=== PATIENT | male | born 1940 | race Caucasian/White ===

== ENCOUNTER 2016-07-29 09:46 | Inpatient (IN) | payer MEDICARE ==
[2016-07-29] MEDS ORDERED: NORMAL SALINE 1000 ML 1,000 ML IV ONE ×3 (10:54→13:42)
[2016-07-29] MEDS ORDERED: MAGNESIUM SULFATE/D5W 100 ML IV ONE (10:55)
[2016-07-29 11:06] LABS: HEMATOCRIT 39.9 % (37.9-51.0); HEMOGLOBIN 13.8 g/dL (13.5-17.0); HGB HCT DIFFERENCE 1.5; MEAN CORPUSCULAR HEMOGLOBIN 30.6 pg (27.0-33.4); MEAN CORPUSCULAR HGB CONC 34.5 g/dL (32.0-36.0); MEAN CORPUSCULAR VOLUME 89 fl (80-97); RED CELL DISTRIBUTION WIDTH 14.2 % (11.5-14.0); WHITE BLOOD COUNT 11.7 10^3/uL (4.0-10.5)
[2016-07-29 11:21] LABS: ALANINE AMINOTRANSFERASE 93 U/L (21-72); ALBUMIN 3.3 g/dL (3.5-5.0); ALKALINE PHOSPHATASE 314 U/L (38-126); ANION GAP 15 (5-19); ASPARTATE AMINO TRANSFERASE 173 U/L (17-59); BILIRUBIN,TOTAL 1.9 mg/dL (0.2-1.3); BLOOD UREA NITROGEN 32 mg/dL (7-20); CALCIUM 10.5 mg/dL (8.4-10.2); CARBON DIOXIDE 19 mmol/L (22-30); CHLORIDE 105 mmol/L (98-107); CREATINE KINASE 149 U/L (55-170); CREATININE RESULT 1.02 mg/dL (0.52-1.25); GLUCOSE 71 mg/dL (75-110); LIPASE 97.9 U/L (23-300); MAGNESIUM 1.8 mg/dL (1.6-2.3); PHOSPHORUS 4.5 mg/dL (2.5-4.5); POTASSIUM 4.6 mmol/L (3.6-5.0); SODIUM 138.8 mmol/L (137-145); TOTAL PROTEIN 6.8 g/dL (6.3-8.2)
[2016-07-29 11:21] LABS: VENOUS BLOOD BASE EXCESS -5.4 mmol/L; VENOUS BLOOD HCO3 17.4 mmol/L (20-32); VENOUS BLOOD PCO2 26.8 mmHg (35-63); VENOUS BLOOD PH 7.43 (7.30-7.42)
[2016-07-29] MEDS ORDERED: LEVOFLOXACIN 500 MG/D5W RTU 100 ML IV ONE (11:34)
[2016-07-29] MEDS ORDERED: CEFEPIME 1 GM/D5W RTU 50 ML IV ONE (11:34)
[2016-07-29 11:36] LABS: BAND NEUTROPHILS % (MANUAL) 1 % (3-5); BASOPHILS % (MANUAL) 0 % (0-2); EOSINOPHILS % (MANUAL) 4 % (0-6); LYMPHOCYTES % (MANUAL) 5 % (13-45); TOTAL CELLS COUNTED 100
[2016-07-29 11:38] LABS: CREATINE KINASE MB 1.46 ng/mL (<4.55)
[2016-07-29 11:41] LABS: ANISOCYTOSIS SLIGHT; TOXIC GRANULATION SLIGHT; TOXIC VACUOLATION PRESENT
[2016-07-29 11:51] LABS: TROPONIN I < 0.012 ng/mL
--- NOTE | 2016-07-29 15:32 | ER Document Report ---
ED General - General Chief Complaint: Other Stated Complaint: WEAKNESS TRAVEL OUTSIDE OF THE [place] IN LAST 30 DAYS: No - HPI Patient complains to provider of: generalized weakness short of breath Notes: Patient presents from home for generalized weakness shortness of breath. According to family members patient has been feeling sick for a few days with some intermittent confusion states patient has a history of lung cancer with removal of the long proximal to 6 years ago has been cancer free since that time the current radiation and chemotherapy. Possible intermittent fevers at home productive cough with nausea. Decreased appetite. Patient was seen by PCP approximately 2 weeks prior to ER visit diagnosed with sinusitis and started on an antibiotic. Upon my evaluation patient is tachycardic oxygenation is about 92. Patient is awake difficult to understand. Patient is moving all 4 extremities patient looks to be uncomfortable - Related Data Allergies/Adverse Reactions: No Known Allergies Allergy (Unverified 09/03/10 10:25) Home Medications: Current Home Medications Albuterol Sulfate [Proair HFA Inhalation Aerosol 8.5 gm MDI] 2 puff IH QID 07/29 [History] Cetirizine HCl [Zyrtec 10 mg Tablet] 10 mg PO DAILY 07/29/16 [History] Esomeprazole Magnesium [Nexium] 40 mg PO BID 07/29/16 [History] Levothyroxine Sodium [Synthroid 0.075 mg Tablet] 0.075 mg PO DAILY 07/29/16 [ History] Lorazepam [Ativan 1 mg Tablet] 1 mg PO BIDP PRN 07/29/16 [History] Pravastatin Sodium [Pravachol] 40 mg PO DAILY 07/29/16 [History] Prochlorperazine Maleate [Compazine 5 mg Tablet] 5 mg PO TIDP PRN 07/29/16 [ History] Tiotropium [place] [Spiriva Handihaler 5 Cap/Kit (18 Mcg/Cap)] 1 puff IH DAILY 07/29/16 [History] Past Medical History - Social History Smoking Status: Unknown if Ever Smoked Family History: Reviewed & Not Pertinent - Past Medical History Cardiac Medical History: Reports: Hx Hypercholesterolemia, Hx Hypertension Denies: Hx Heart Attack Pulmonary Medical History: Reports: Hx Bronchitis, Hx COPD Denies: Hx Asthma Neurological Medical History: Denies: Hx Cerebrovascular Accident, Hx Seizures GI Medical History: Reports: Hx Gastroesophageal Reflux Disease. Denies: Hx Hepatitis, Hx Hiatal Hernia, Hx Ulcer Psychiatric Medical History: Reports: Hx Depression - anxiety Infectious Medical History: Denies: Hx Hepatitis Past Surgical History: Denies: Hx Open Heart Surgery, Hx Pacemaker Review of Systems - Review of Systems Constitutional: Fever, Weakness EENT: No symptoms reported Cardiovascular: No symptoms reported Respiratory: Cough, Short of breath Gastrointestinal: No symptoms reported Genitourinary: No symptoms reported Male Genitourinary: No symptoms reported Musculoskeletal: No symptoms reported Skin: No symptoms reported Hematologic/Lymphatic: No symptoms reported Neurological/Psychological: No symptoms reported -: Yes All other systems reviewed and negative Physical Exam - Vital signs Vitals: Temp Pulse Resp BP Pulse Ox 98.6 F 118 H 22 H 124/90 H 94 07/29/16 09:58 07/29/16 09:58 07/29/16 09:58 07/29/16 09:58 07/29/16 09:58 Interpretation: Tachycardic, Tachypneic - General General appearance: Alert. No: Appears well - Looks uncomfortable - HEENT Head: Normocephalic, Atraumatic Eyes: Normal Pupils: PERRL - Respiratory Respiratory status: No respiratory distress Chest status: Nontender Breath sounds: Rhonchi - Right-sided, Wheezing Chest palpation: Normal - Cardiovascular Rhythm: Tachycardia Heart sounds: Normal auscultation Murmur: No - Abdominal Inspection: Normal Distension: No distension Bowel sounds: Normal Tenderness: Nontender. No: Tender, McBurney's point, Escobar's sign, Guarding, Rebound Organomegaly: No organomegaly - Back Back: Normal, Nontender - Extremities General upper extremity: Normal inspection, Nontender, Normal color, Normal ROM , Normal temperature General lower extremity: Normal inspection, Nontender, Normal color, Normal ROM , Normal temperature, Normal weight bearing. No: Rachana's sign - Neurological Neuro grossly intact: Yes Cognition: Normal Orientation: AAOx4 [place] Coma Scale Eye Opening: Spontaneous [place] Coma Scale Verbal: Oriented [place] Coma Scale Motor: Obeys Commands Tin Coma Scale Total: 15 Speech: Normal Motor strength normal: LUE, RUE, LLE, RLE Sensory: Normal - Psychological Associated symptoms: Normal affect, Normal mood - Skin Skin Temperature: Warm Skin Moisture: Dry Skin Color: Normal Course - Re-evaluation Re-evalutation: 07/29/16 18:23 Patient is x-ray shows concerning for right middle and lower lobe pneumonia. Patient has mild elevation in white count left shift the continued tachycardia slight elevation left [place]. Patient was given IV fluids and cefepime and Levaquin order for anabolic coverage. Patient does have elevation of liver function test a CT of the abdomen was performed showing masses or nodules within the liver possibly consistent with metastatic disease. They relayed this information to the family and to the PCP will admit the patient to the IMCU. - Vital Signs Vital signs: Temp Pulse Resp BP Pulse Ox 98.6 F 118 H 26 H 128/104 H 92 07/29/16 09:58 07/29/16 09:58 07/29/16 16:01 07/29/16 16:01 07/29/16 16:01 - Laboratory Result Diagrams: 07/29/16 10:41 07/29/16 10:41 Laboratory results interpreted by me: 07/29/16 07/29/16 07/29/16 10:41 10:41 10:41 WBC 11.7 H RDW 14.2 H Plt Count 61 L Seg Neuts % (Manual) 81 H Band Neutrophils % 1 L Lymphocytes % (Manual) 5 L Metamyelocytes % 1 H Myelocytes % 2 H Abs Neuts (Manual) 9.9 H VBG pH VBG pCO2 VBG HCO3 Carbon Dioxide 19 L BUN 32 H Glucose 71 L Lactic Acid 3.3 H Calcium 10.5 H Total Bilirubin 1.9 H AST 173 H ALT 93 H Alkaline Phosphatase 314 H Albumin 3.3 L Urine Ketones 07/29/16 07/29/16 11:10 14:55 WBC RDW Plt Count Seg Neuts % (Manual) Band Neutrophils % Lymphocytes % (Manual) Metamyelocytes % Myelocytes % Abs Neuts (Manual) VBG pH 7.43 H VBG pCO2 26.8 L VBG HCO3 17.4 L Carbon Dioxide BUN Glucose Lactic Acid Calcium Total Bilirubin AST ALT Alkaline Phosphatase Albumin Urine Ketones 20 H Critical Care Note - Critical Care Note Total time excluding time spent on procedures (mins): 35 Comments: Multiple evaluations for patient with sepsis pneumonia tachycardia persistent Discharge - Discharge Clinical Impression: multiple liver lesions, History of lung cancer Right lower lobe pneumonia Qualifiers: Pneumonia type: due to unspecified organism Qualified Code(s): J18.1 - Lobar pneumonia, unspecified organism Sepsis Qualifiers: Sepsis type: sepsis due to unspecified organism Qualified Code(s): A41.9 - Sepsis, unspecified organism Condition: Fair Disposition: ADMITTED INPATIENT Admitting Provider: Jaime Unit Admitted: [facility] Referrals: JOSE CONTRERAS MD [Primary Care Provider] - Follow up as needed
[2016-07-29 15:34] LABS: APPEARANCE,URINE CLEAR; BILIRUBIN,URINE NEGATIVE (NEGATIVE); GLUCOSE, URINE NEGATIVE (NEGATIVE); KETONES,URINE 20 mg/dL (NEGATIVE); LEUKOCYTE ESTERASE,URINE NEGATIVE (NEGATIVE); NITRITE,URINE NEGATIVE (NEGATIVE); PROTEIN,URINE NEGATIVE (NEGATIVE); URINE SPECIFIC GRAVITY 1.034; UROBILINOGEN,URINE NEGATIVE mg/dL (<2.0)
[2016-07-29] MEDS ORDERED: ACETAMINOPHEN 325 MG TABLET PO PRN (16:41)
--- NOTE | 2016-07-29 16:41 | PDOC H&P ---
History of Present Illness Admission Date/PCP: 07/29/16 16:09 JOSE CONTRERAS, Patient complains of: The patient comes in complaining of weakness. He was seen in the office about 2 weeks ago with upper respiratory tract infection and COPD exacerbation. He has been treated with antibiotics and steroids and felt better but then over the past week he has noticed that his appetite has decreased and he has not been feeling well. Because of feeling weakness today the has suggested that he goes to the emergency room. In the emergency room he was found to be in distress he was found to have a pneumonia and possible liver lesions and was admitted for further evaluation and treatment History of Present Illness: JOSEPH CARRILLO is a 75 year old male Past Medical History Cardiac Medical History: Reports: Hyperlipidema, Hypertension Denies: Myocardial Infarction Pulmonary Medical History: Reports: Bronchitis, Chronic Obstructive Pulmonary Disease (COPD) Denies: Asthma Neurological Medical History: Denies: Seizures Endocrine Medical History: Reports: Hypothyroidism Malignancy Medical History: Reports: Lung Cancer - Stage IA status post upper lobectomy Malignancy History Note: Stage I a lung cancer status post resection GI Medical History: Reports: Gastroesophageal Reflux Disease Denies: Hepatitis, Hiatal Hernia Musculoskeltal Medical History: Reports: Arthritis Psychiatric Medical History: Reports: Depression - anxiety Hematology: Denies: Anemia, Sickle Cell Disease Past Surgical History Past Surgical History: Reports: Herniorrhaphy, Other - Upper lobectomy right lung Social History Information Source: Patient Lives with: Family Smoking Status: Former Smoker Last Time Smoked: more than 10 years ago Frequency of Alcohol Use: Occasional Drugs: None Family History Family History: Reviewed & Not Pertinent Parental Family History Reviewed: Yes Children Family History Reviewed: Yes Sibling(s) Family History Reviewed.: Yes Medication/Allergy Allergies/Adverse Reactions: No Known Allergies Allergy (Unverified 09/03/10 10:25) Review of Systems All systems: as per PMH Physical Exam Vital Signs: Temp Pulse Resp BP Pulse Ox 98.6 F 118 H 25 H 133/81 H 91 L 07/29/16 09:58 07/29/16 09:58 07/29/16 14:34 07/29/16 14:34 07/29/16 14:34 General appearance: PRESENT: severe distress Head exam: PRESENT: atraumatic Eye exam: PRESENT: conjunctiva pink Neck exam: ABSENT: carotid bruit Respiratory exam: PRESENT: accessory muscle use, decreased breath sounds, prolonged expiratory phas Cardiovascular exam: PRESENT: RRR, +S1, +S2 Pulses: PRESENT: +1 pedal pulses bilateral Vascular exam: PRESENT: normal capillary refill GI/Abdominal exam: PRESENT: tenderness Extremities exam: PRESENT: full ROM, tenderness Musculoskeletal exam: PRESENT: tenderness Results Impressions: Chest X-Ray 07/29/16 09:50 IMPRESSION: There is diffuse parenchymal density noted in the right lung common mid and lower lung zones. This is concerning for underlying infiltrate. Correlate clinically. Head CT 07/29/16 11:35 IMPRESSION: No acute intracranial abnormality identified. Age-related brain matter volume loss. Chronic microvascular ischemic disease changes noted in the supratentorial white matter. Abdomen/Pelvis CT 07/29/16 13:00 IMPRESSION: 1. There appears to be multiple hypoattenuating lesion seen throughout the liver with new nodular contour of the liver. The largest of these hypoattenuated lesions measures approximate 1.6 cm in segment 6 of the liver. These are doubtful an not seen on prior studies lobe comparison is somewhat limited as the prior studies not performed with contrast. Contrast opacification liver is suboptimal on this study therefore limiting evaluation of these lesions that. There also appears to be multiple enlarged lymph nodes and/or mass in the danica hepatis region of the liver. Therefore this could represent cirrhotic change in liver with hyperplastic nodules and reactive adenopathy though underlying malignancy with metastasis the liver and lymph nodes in the danica hepatis is not entirely excluded. Further workup is warranted. Liver could be further evaluated with dedicated MRI of the liver with contrast. 2. Parenchymal consolidation noted in the right middle and lower lobes concerning for infectious infiltrate common not completely evaluated on this study. Assessment & Plan - Diagnosis (1) Pneumonia Qualifiers: Pneumonia type: due to unspecified organism Lung location: lower lobe of lung Is this a current diagnosis for this admission?: YesPlan: We will start IV antibiotics, nebulization treatments, IV fluids (2) Lung cancer, upper lobe Qualifiers: Laterality: right Qualified Code(s): C34.11 - Malignant neoplasm of upper lobe, right bronchus or lung Is this a current diagnosis for this admission?: Yes (3) Liver lesion Is this a current diagnosis for this admission?: YesPlan: Possible metastatic disease (4) Sepsis Qualifiers: Sepsis type: sepsis due to unspecified organism Qualified Code(s): A41.9 - Sepsis, unspecified organism Is this a current diagnosis for this admission?: YesPlan: IV fluid resuscitation and IV antibiotics (5) Hypothyroidism Is this a current diagnosis for this admission?: YesPlan: Continue current medications (6) COPD (chronic obstructive pulmonary disease) Is this a current diagnosis for this admission?: YesPlan: Continue nebulization treatments and inhaled steroids (7) GERD (gastroesophageal reflux disease) Is this a current diagnosis for this admission?: YesPlan: Continue current medications (8) Lower back pain Is this a current diagnosis for this admission?: Yes - Inpatient Certification Based on my medical assessment, after consideration of the patient's comorbidities, presenting symptoms, or acuity I expect that the services needed warrant INPATIENT care.: Yes I certify that my determination is in accordance with my understanding of Medicare's requirements for reasonable and necessary INPATIENT services [42 CFR 412.3e].: Yes Medical Necessity: Need For IV Fluids, Need for Nebulizer Therapy and Monitoring of Response, Need for IV Antibiotics
[2016-07-29] MEDS ORDERED: ENOXAPARIN SODIUM INJ 40 MG/0.4 ML DISP.SYRIN SUBCUT ONE (18:00)
[2016-07-29] MEDS: NORMAL SALINE 1000 ML 1,000 ML IV PRN (18:56)
[2016-07-29] MEDS: LORAZEPAM 1 MG TABLET PO PRN (21:04)
[2016-07-29] MEDS: GUAIFENESIN 600 MG TABLET.SA PO SCH (21:05)
[2016-07-29] MEDS: ATORVASTATIN CALCIUM 10 MG TABLET PO SCH (21:06)
[2016-07-29] MEDS ORDERED: CEFEPIME 2 GM/D5W RTU 50 ML IV SCH (22:00)
[2016-07-29] MEDS: CEFEPIME HCL 2 GM in DEXTROSE 5%-WATER 50 ML IV SCH (22:09)
[2016-07-29] MEDS: ALBUTEROL SULFATE HFA (90 MCG/PUFF) 200 PUFF/8.5 GM MDI IH SCH (22:36)
[2016-07-30] MEDS: NORMAL SALINE 1000 ML 1,000 ML IV PRN ×2 (03:59→12:56)
[2016-07-30 05:52] LABS: ABSOLUTE EOSINOPHILS # (AUTO) 0.1 10^3/uL (0.0-0.6); ABSOLUTE LYMPHOCYTES (AUTO) 2.3 10^3/uL (0.5-4.7); ABSOLUTE MONOCYTES (AUTO) 0.9 10^3/uL (0.1-1.4); ABSOLUTE NEUT (AUTO) 12.9 10^3/uL (1.7-8.2); BASOPHILS % (AUTO) 0.2 % (0-2); EOSINOPHILS % (AUTO) 0.7 % (0-6); HEMATOCRIT 35.7 % (37.9-51.0); HGB HCT DIFFERENCE 0.3; LYMPHOCYTES % (AUTO) 13.9 % (13-45); MEAN CORPUSCULAR HEMOGLOBIN 30.1 pg (27.0-33.4); MEAN CORPUSCULAR HGB CONC 33.5 g/dL (32.0-36.0); MEAN CORPUSCULAR VOLUME 90 fl (80-97); MONOCYTES % (AUTO) 5.8 % (3-13); RED BLOOD COUNT 3.97 10^6/uL (4.35-5.55); RED CELL DISTRIBUTION WIDTH 14.3 % (11.5-14.0); SEGMENTED NEUTROPHILS % (AUTO) 79.4 % (42-78); WHITE BLOOD COUNT 16.2 10^3/uL (4.0-10.5)
[2016-07-30 05:54] LABS: ALANINE AMINOTRANSFERASE 87 U/L (21-72); ALBUMIN 2.8 g/dL (3.5-5.0); ALKALINE PHOSPHATASE 280 U/L (38-126); ANION GAP 11 (5-19); ASPARTATE AMINO TRANSFERASE 156 U/L (17-59); BILIRUBIN,TOTAL 1.1 mg/dL (0.2-1.3); BLOOD UREA NITROGEN 27 mg/dL (7-20); CALCIUM 9.4 mg/dL (8.4-10.2); CARBON DIOXIDE 18 mmol/L (22-30); CHLORIDE 108 mmol/L (98-107); CREATININE RESULT 0.93 mg/dL (0.52-1.25); GLUCOSE 73 mg/dL (75-110); POTASSIUM 4.2 mmol/L (3.6-5.0); SODIUM 136.5 mmol/L (137-145); TOTAL PROTEIN 5.9 g/dL (6.3-8.2)
[2016-07-30] MEDS ORDERED: LANSOPRAZOLE 30 MG TAB.RAP.DR PO SCH ×2 (06:00→08:00)
[2016-07-30] MEDS ORDERED: ENOXAPARIN SODIUM INJ 40 MG/0.4 ML DISP.SYRIN SUBCUT SCH (08:00)
[2016-07-30] MEDS ORDERED: ONDANSETRON 4 MG TAB.RAPDIS PO PRN (09:01)
--- NOTE | 2016-07-30 09:10 | PDOC PROGRESS REPORT ---
Subjective Progress Note for:: 07/30/16 Subjective:: The patient states to feel better. He still has some nausea but was able to eat his breakfast. He denies any shortness of breath or pain. He denies any abdominal pain or diarrhea. Physical Exam Vital Signs: Temp Pulse Resp BP Pulse Ox 98.3 F 84 18 157/90 H 90 L 07/30/16 05:06 07/30/16 07:00 07/30/16 05:06 07/30/16 05:06 07/30/16 05:06 Intake & Output 07/29/16 07/30/16 07/31/16 06:59 06:59 06:59 Intake Total 1800 Output Total 750 Balance 1050 Weight 79.6 kg General appearance: PRESENT: mild distress Head exam: PRESENT: atraumatic Eye exam: PRESENT: conjunctival injection Neck exam: ABSENT: carotid bruit Respiratory exam: PRESENT: rhonchi Cardiovascular exam: PRESENT: +S1, +S2 Pulses: PRESENT: +1 pedal pulses bilateral Vascular exam: PRESENT: normal capillary refill GI/Abdominal exam: PRESENT: normal bowel sounds, soft Extremities exam: PRESENT: full ROM Musculoskeletal exam: PRESENT: ambulatory Neurological exam: PRESENT: alert Psychiatric exam: PRESENT: anxious Results Laboratory Results: 07/30/16 04:46 07/30/16 04:46 07/30/16 07/30/16 04:46 04:46 WBC 16.2 H RBC 3.97 L Hgb 12.0 L Hct 35.7 L MCV 90 MCH 30.1 MCHC 33.5 RDW 14.3 H Plt Count 52 L Seg Neutrophils % 79.4 H Lymphocytes % 13.9 Monocytes % 5.8 Eosinophils % 0.7 Basophils % 0.2 Absolute Neutrophils 12.9 H Absolute Lymphocytes 2.3 Absolute Monocytes 0.9 Absolute Eosinophils 0.1 Absolute Basophils 0.0 Sodium 136.5 L Potassium 4.2 Chloride 108 H Carbon Dioxide 18 L Anion Gap 11 BUN 27 H Creatinine 0.93 Est GFR ( Amer) > 60 Est GFR (Non-Af Amer) > 60 Glucose 73 L Calcium 9.4 Total Bilirubin 1.1 AST 156 H ALT 87 H Alkaline Phosphatase 280 H Total Protein 5.9 L Albumin 2.8 L Impressions: Chest X-Ray 07/29/16 09:50 IMPRESSION: There is diffuse parenchymal density noted in the right lung common mid and lower lung zones. This is concerning for underlying infiltrate. Correlate clinically. Head CT 07/29/16 11:35 IMPRESSION: No acute intracranial abnormality identified. Age-related brain matter volume loss. Chronic microvascular ischemic disease changes noted in the supratentorial white matter. Abdomen/Pelvis CT 07/29/16 13:00 IMPRESSION: 1. There appears to be multiple hypoattenuating lesion seen throughout the liver with new nodular contour of the liver. The largest of these hypoattenuated lesions measures approximate 1.6 cm in segment 6 of the liver. These are doubtful an not seen on prior studies lobe comparison is somewhat limited as the prior studies not performed with contrast. Contrast opacification liver is suboptimal on this study therefore limiting evaluation of these lesions that. There also appears to be multiple enlarged lymph nodes and/or mass in the danica hepatis region of the liver. Therefore this could represent cirrhotic change in liver with hyperplastic nodules and reactive adenopathy though underlying malignancy with metastasis the liver and lymph nodes in the danica hepatis is not entirely excluded. Further workup is warranted. Liver could be further evaluated with dedicated MRI of the liver with contrast. 2. Parenchymal consolidation noted in the right middle and lower lobes concerning for infectious infiltrate common not completely evaluated on this study. Assessment & Plan - Diagnosis (1) Pneumonia Qualifiers: Pneumonia type: due to unspecified organism Lung location: lower lobe of lung Is this a current diagnosis for this admission?: YesPlan: Continue antibiotics with double coverage for possible Pseudomonas (2) Lung cancer, upper lobe Qualifiers: Laterality: right Qualified Code(s): C34.11 - Malignant neoplasm of upper lobe, right bronchus or lung Is this a current diagnosis for this admission?: YesPlan: Prior history of stage IA lung cancer status post upper lobectomy (3) Liver lesion Is this a current diagnosis for this admission?: YesPlan: We'll evaluate with possible MRI or discussed with GI for possible biopsy (4) Sepsis Qualifiers: Sepsis type: sepsis due to unspecified organism Qualified Code(s): A41.9 - Sepsis, unspecified organism Is this a current diagnosis for this admission?: YesPlan: Continue IV fluids resuscitation and IV antibiotics (5) Hypothyroidism Is this a current diagnosis for this admission?: Yes (6) COPD (chronic obstructive pulmonary disease) Is this a current diagnosis for this admission?: YesPlan: Continue with neb treatments (7) GERD (gastroesophageal reflux disease) Is this a current diagnosis for this admission?: YesPlan: Continue current medications (8) Lower back pain Is this a current diagnosis for this admission?: Yes (9) Thrombocytopenia Plan: We'll continue holding Lovenox
--- NOTE | 2016-07-30 09:18 | EKG REPORT ---
SEVERITY:- ABNORMAL ECG - SINUS TACHYCARDIA ATRIAL PREMATURE COMPLEX LEFT ANTERIOR FASCICULAR BLOCK BORDERLINE T ABNORMALITIES, ANT-LAT LEADS : Confirmed by: Jorigto Schroeder MD 30-Jul-2016 09:17:55
[2016-07-30 09:38] LABS: ARTERIAL BLOOD BASE EXCESS -5.7 mmol/L; ARTERIAL BLOOD O2 SATURATION 94.2 % (94-98)
[2016-07-30] MEDS: LEVOTHYROXINE SODIUM 0.075 MG TABLET PO SCH (09:42)
[2016-07-30] MEDS: ALBUTEROL SULFATE HFA (90 MCG/PUFF) 200 PUFF/8.5 GM MDI IH SCH ×4 (09:43→21:10)
[2016-07-30] MEDS: CEFEPIME HCL 2 GM in DEXTROSE 5%-WATER 50 ML IV SCH ×2 (09:43→22:17)
[2016-07-30] MEDS: GUAIFENESIN 600 MG TABLET.SA PO SCH ×2 (09:43→21:05)
[2016-07-30] MEDS: TIOTROPIUM BROMIDE DPI 5 CAP/KIT (18 MCG/CAP) IH SCH (09:43)
[2016-07-30] MEDS: LEVOFLOXACIN 500 MG/D5W RTU 100 ML IV SCH (09:44)
[2016-07-30] MEDS ORDERED: (PENDING PHARMACY ID) (Pravastatin Sodium [Pravachol] 40 MG) PO SCH (10:00)
[2016-07-30] MEDS ORDERED: CETIRIZINE 10 MG TABLET PO SCH (10:00)
[2016-07-30] MEDS: IPRATROPIUM/ALBUTEROL 0.5-2.5 MG/3 ML AMPUL NEB PRN (18:46)
[2016-07-30] MEDS: LORAZEPAM 1 MG TABLET PO PRN (21:05)
[2016-07-30] MEDS: ATORVASTATIN CALCIUM 10 MG TABLET PO SCH (21:05)
[2016-07-30] MEDS ORDERED: LORAZEPAM INJ 2 MG/1 ML VIAL ONE (23:47)
[2016-07-31] MEDS ORDERED: LORAZEPAM INJ 2 MG/1 ML VIAL IV ONE (00:15)
[2016-07-31] MEDS ORDERED: DEXTROSE 50%-WATER 25 GM/50 ML DISP.SYRIN IV ONE ×2 (01:55→02:15)
[2016-07-31 02:14] LABS: HEMATOCRIT 38.8 % (37.9-51.0); HGB HCT DIFFERENCE 0.2; MEAN CORPUSCULAR HEMOGLOBIN 29.9 pg (27.0-33.4); MEAN CORPUSCULAR HGB CONC 33.4 g/dL (32.0-36.0); MEAN CORPUSCULAR VOLUME 90 fl (80-97); RED BLOOD COUNT 4.34 10^6/uL (4.35-5.55); WHITE BLOOD COUNT 11.4 10^3/uL (4.0-10.5)
[2016-07-31 02:26] LABS: ANION GAP 10 (5-19); BLOOD UREA NITROGEN 20 mg/dL (7-20); CALCIUM 9.3 mg/dL (8.4-10.2); CARBON DIOXIDE 20 mmol/L (22-30); CHLORIDE 108 mmol/L (98-107); CREATININE RESULT 0.94 mg/dL (0.52-1.25); GLUCOSE 216 mg/dL (75-110); POTASSIUM 4.5 mmol/L (3.6-5.0); SODIUM 137.8 mmol/L (137-145)
[2016-07-31 02:47] LABS: BAND NEUTROPHILS % (MANUAL) 3 % (3-5); BASOPHILS % (MANUAL) 0 % (0-2); EOSINOPHILS % (MANUAL) 4 % (0-6); LYMPHOCYTES % (MANUAL) 15 % (13-45); TOTAL CELLS COUNTED 100
[2016-07-31 02:48] LABS: ANISOCYTOSIS SLIGHT; TOXIC VACUOLATION PRESENT
[2016-07-31 02:49] LABS: OVALOCYTES 1+; POIKILOCYTOSIS 1+; TEAR DROP CELLS SLIGHT
[2016-07-31] MEDS ORDERED: HALOPERIDOL LACTATE INJ 5 MG/1 ML VIAL IV ONE (03:33)
[2016-07-31 07:36] LABS: HEMATOCRIT 38.7 % (37.9-51.0); HEMOGLOBIN 13.3 g/dL (13.5-17.0); HGB HCT DIFFERENCE 1.2; MEAN CORPUSCULAR HEMOGLOBIN 30.6 pg (27.0-33.4); MEAN CORPUSCULAR HGB CONC 34.4 g/dL (32.0-36.0); MEAN CORPUSCULAR VOLUME 89 fl (80-97); RED BLOOD COUNT 4.35 10^6/uL (4.35-5.55); RED CELL DISTRIBUTION WIDTH 14.2 % (11.5-14.0); WHITE BLOOD COUNT 10.9 10^3/uL (4.0-10.5)
[2016-07-31 07:56] LABS: ANION GAP 12 (5-19); BLOOD UREA NITROGEN 17 mg/dL (7-20); CALCIUM 9.5 mg/dL (8.4-10.2); CARBON DIOXIDE 20 mmol/L (22-30); CHLORIDE 108 mmol/L (98-107); CREATININE RESULT 0.84 mg/dL (0.52-1.25); GLUCOSE 80 mg/dL (75-110); MAGNESIUM 1.7 mg/dL (1.6-2.3); SODIUM 139.8 mmol/L (137-145)
[2016-07-31 08:09] LABS: BAND NEUTROPHILS % (MANUAL) 4 % (3-5); BASOPHILS % (MANUAL) 0 % (0-2); EOSINOPHILS % (MANUAL) 1 % (0-6); LYMPHOCYTES % (MANUAL) 14 % (13-45); TOTAL CELLS COUNTED 100
[2016-07-31 08:12] LABS: POLYCHROMASIA SLIGHT
[2016-07-31] MEDS: IPRATROPIUM/ALBUTEROL 0.5-2.5 MG/3 ML AMPUL NEB PRN ×3 (08:16→23:18)
[2016-07-31] MEDS ORDERED: NORMAL SALINE 1000 ML 1,000 ML IV PRN (08:38)
[2016-07-31] MEDS: LEVOTHYROXINE SODIUM 0.075 MG TABLET PO SCH (09:11)
[2016-07-31] MEDS: CEFEPIME HCL 2 GM in DEXTROSE 5%-WATER 50 ML IV SCH ×2 (09:11→21:30)
[2016-07-31] MEDS: GUAIFENESIN 600 MG TABLET.SA PO SCH ×2 (09:11→21:26)
[2016-07-31] MEDS: TIOTROPIUM BROMIDE DPI 5 CAP/KIT (18 MCG/CAP) IH SCH (09:12)
[2016-07-31] MEDS: LEVOFLOXACIN 500 MG/D5W RTU 100 ML IV SCH (09:12)
[2016-07-31] MEDS: ALBUTEROL SULFATE HFA (90 MCG/PUFF) 200 PUFF/8.5 GM MDI IH SCH ×4 (09:13→23:49)
[2016-07-31] MEDS: LORAZEPAM 1 MG TABLET PO PRN ×2 (10:33→21:27)
--- NOTE | 2016-07-31 14:42 | PDOC PROGRESS REPORT ---
Subjective Progress Note for:: 07/31/16 Subjective:: Patient is seen on morning rounds. He is sleeping at the present time. His is at bedside. She states he had a rough night last night. She was very agitated and confused. He required Ativan and Haldol IV. He has been sleeping for the last hour. She states his cough has improved some. He has no prior history of confusion home or agitation. Review of systems is unobtainable at the present time due to patient's mentation. Physical Exam Vital Signs: Temp Pulse Resp BP Pulse Ox 97.8 F 103 H 20 122/99 H 92 07/31/16 11:56 07/31/16 11:56 07/31/16 11:56 07/31/16 11:56 07/31/16 11:56 Intake & Output 07/30/16 07/31/16 08/01/16 06:59 06:59 06:59 Intake Total 1800 3569 Output Total 750 1975 Balance 1050 1594 Weight 79.6 kg 76.6 kg General appearance: PRESENT: no acute distress, thin, well-developed Head exam: PRESENT: atraumatic, normocephalic Eye exam: PRESENT: conjunctiva pink, EOMI, PERRLA. ABSENT: scleral icterus Mouth exam: PRESENT: dry mucosa, neck supple, tongue midline Neck exam: ABSENT: carotid bruit, JVD, lymphadenopathy, thyromegaly Respiratory exam: PRESENT: other - absence of breath sounds throughout right lung field Cardiovascular exam: PRESENT: RRR. ABSENT: diastolic murmur, rubs, systolic murmur Pulses: PRESENT: normal dorsalis pedis pul Vascular exam: PRESENT: normal capillary refill GI/Abdominal exam: PRESENT: normal bowel sounds, soft. ABSENT: distended, guarding, mass, organolmegaly, rebound, tenderness Rectal exam: PRESENT: deferred Extremities exam: PRESENT: full ROM. ABSENT: calf tenderness, clubbing, pedal edema Neurological exam: PRESENT: altered, CN II-XII grossly intact Psychiatric exam: PRESENT: appropriate affect, normal mood. ABSENT: homicidal ideation, suicidal ideation Skin exam: PRESENT: dry, intact, warm. ABSENT: cyanosis, rash Results Laboratory Results: 07/31/16 07:23 07/31/16 07:23 07/31/16 07/31/16 07/31/16 02:00 02:00 07:23 WBC 11.4 H 10.9 H RBC 4.34 L 4.35 Hgb 13.0 L 13.3 L Hct 38.8 38.7 MCV 90 89 MCH 29.9 30.6 MCHC 33.4 34.4 RDW 14.0 14.2 H Plt Count 41 L 45 L Seg Neutrophils % Not Reportable Not Reportable Lymphocytes % Not Reportable Not Reportable Monocytes % Not Reportable Not Reportable Eosinophils % Not Reportable Not Reportable Basophils % Not Reportable Not Reportable Absolute Neutrophils Not Reportable Not Reportable Absolute Lymphocytes Not Reportable Not Reportable Absolute Monocytes Not Reportable Not Reportable Absolute Eosinophils Not Reportable Not Reportable Absolute Basophils Not Reportable Not Reportable Sodium 137.8 Potassium 4.5 Chloride 108 H Carbon Dioxide 20 L Anion Gap 10 BUN 20 Creatinine 0.94 Est GFR ( Amer) > 60 Est GFR (Non-Af Amer) > 60 Glucose 216 H Calcium 9.3 Magnesium 07/31/16 07:23 WBC RBC Hgb Hct MCV MCH MCHC RDW Plt Count Seg Neutrophils % Lymphocytes % Monocytes % Eosinophils % Basophils % Absolute Neutrophils Absolute Lymphocytes Absolute Monocytes Absolute Eosinophils Absolute Basophils Sodium 139.8 Potassium 4.0 Chloride 108 H Carbon Dioxide 20 L Anion Gap 12 BUN 17 Creatinine 0.84 Est GFR ( Amer) > 60 Est GFR (Non-Af Amer) > 60 Glucose 80 Calcium 9.5 Magnesium 1.7 Impressions: Head CT 07/29/16 11:35 IMPRESSION: No acute intracranial abnormality identified. Age-related brain matter volume loss. Chronic microvascular ischemic disease changes noted in the supratentorial white matter. Abdomen/Pelvis CT 07/29/16 13:00 IMPRESSION: 1. There appears to be multiple hypoattenuating lesion seen throughout the liver with new nodular contour of the liver. The largest of these hypoattenuated lesions measures approximate 1.6 cm in segment 6 of the liver. These are doubtful an not seen on prior studies lobe comparison is somewhat limited as the prior studies not performed with contrast. Contrast opacification liver is suboptimal on this study therefore limiting evaluation of these lesions that. There also appears to be multiple enlarged lymph nodes and/or mass in the danica hepatis region of the liver. Therefore this could represent cirrhotic change in liver with hyperplastic nodules and reactive adenopathy though underlying malignancy with metastasis the liver and lymph nodes in the danica hepatis is not entirely excluded. Further workup is warranted. Liver could be further evaluated with dedicated MRI of the liver with contrast. 2. Parenchymal consolidation noted in the right middle and lower lobes concerning for infectious infiltrate common not completely evaluated on this study. Chest CT 07/31/16 00:00 IMPRESSION: Collapse of the right lung with bronchial cut off sign suspicious for endobronchial lesion. Mediastinal adenopathy. Chest X-Ray 07/31/16 06:00 IMPRESSION: There is dense opacification of the right hemithorax likely representing significant pleural effusion associated atelectasis/infiltrate. There is increased pulmonary vascular distention and interstitial edema noted in the left lung. No focal opacities on the left. Assessment & Plan - Diagnosis (1) Pneumonia Qualifiers: Pneumonia type: due to unspecified organism Lung location: lower lobe of lung Is this a current diagnosis for this admission?: YesPlan: Patient's repeat chest x-ray this a.m., shows complete opacification of the right hemithorax. WBCs are trending down. He remains afebrile. Oxygen saturations on room air her low 90s. CT of the chest with contrast was therefore ordered which showed complete collapse of the right long with bronchial cutoff sign showing possible endobronchial lesion. Mediastinal adenopathy. Discussed with family member. We will consult hematology oncology with concern for recurrence of lung cancer as well as thrombocytopenia. He will need some type of biopsy. (2) History of lung cancer Is this a current diagnosis for this admission?: YesPlan: As above. Patient has history of a right upper lobectomy for non-small lung cancer resected in 2010. Present presentation is worrisome for recurrence of lung cancer which appears to be metastatic. Patient according to his lost over 30 pounds last 4 months. (3) Thrombocytopenia Is this a current diagnosis for this admission?: YesPlan: Platelet count continues to drop could be secondary to infectious or malignant process. We will consult Dr. Maryjane Han. Patient will need biopsy at some point. (4) Agitation Is this a current diagnosis for this admission?: YesPlan: Patient was extremely agitated overnight requiring Ativan and Haldol. Patient did have CT of his head was unremarkable any lesions. We will check ammonia levels. Continue when necessary anxiolytics (5) Liver lesion Is this a current diagnosis for this admission?: YesPlan: Obvious concern for metastatic disease - Time Time Spent with patient: 25-34 minutes Critical Time spent with patient: 25-34 minutes Medications reviewed and adjusted accordingly: Yes
[2016-07-31 14:43] LABS: VENOUS BLOOD BASE EXCESS -5.6 mmol/L; VENOUS BLOOD HCO3 16.6 mmol/L (20-32); VENOUS BLOOD PCO2 24.9 mmHg (35-63); VENOUS BLOOD PH 7.44 (7.30-7.42)
[2016-07-31] MEDS ORDERED: DEXTROSE 40% GEL 15 GM TUBE PO PRN ×2 (19:02)
[2016-07-31] MEDS ORDERED: GLUCAGON,HUMAN RECOMB 1 MG INJ IM PRN (19:02)
[2016-07-31] MEDS ORDERED: DEXTROSE 50%-WATER 25 GM/50 ML DISP.SYRIN IV PRN ×2 (19:02)
[2016-07-31] MEDS: ATORVASTATIN CALCIUM 10 MG TABLET PO SCH (21:27)
[2016-08-01 04:57] LABS: HEMATOCRIT 41.2 % (37.9-51.0); HGB HCT DIFFERENCE 0.8; MEAN CORPUSCULAR VOLUME 88 fl (80-97); RED BLOOD COUNT 4.66 10^6/uL (4.35-5.55); RED CELL DISTRIBUTION WIDTH 14.2 % (11.5-14.0); WHITE BLOOD COUNT 11.7 10^3/uL (4.0-10.5)
[2016-08-01 05:10] LABS: ALANINE AMINOTRANSFERASE 97 U/L (21-72); ALKALINE PHOSPHATASE 308 U/L (38-126); ANION GAP 15 (5-19); ASPARTATE AMINO TRANSFERASE 213 U/L (17-59); BILIRUBIN,TOTAL 1.5 mg/dL (0.2-1.3); BLOOD UREA NITROGEN 17 mg/dL (7-20); CALCIUM 10.3 mg/dL (8.4-10.2); CARBON DIOXIDE 18 mmol/L (22-30); CHLORIDE 105 mmol/L (98-107); CREATININE RESULT 0.79 mg/dL (0.52-1.25); GLUCOSE 73 mg/dL (75-110); POTASSIUM 4.5 mmol/L (3.6-5.0); SODIUM 137.7 mmol/L (137-145); TOTAL PROTEIN 6.4 g/dL (6.3-8.2)
[2016-08-01 05:20] LABS: BAND NEUTROPHILS % (MANUAL) 6 % (3-5); BASOPHILS % (MANUAL) 0 % (0-2); EOSINOPHILS % (MANUAL) 1 % (0-6); LYMPHOCYTES % (MANUAL) 9 % (13-45); TOTAL CELLS COUNTED 100
[2016-08-01 05:24] LABS: ANISOCYTOSIS SLIGHT; TOXIC VACUOLATION PRESENT
[2016-08-01] MEDS: MEGESTROL ACETATE SUSP 400 MG/10 ML UDCUP PO SCH (10:21)
[2016-08-01] MEDS: TIOTROPIUM BROMIDE DPI 5 CAP/KIT (18 MCG/CAP) IH SCH (10:21)
[2016-08-01] MEDS: LEVOTHYROXINE SODIUM 0.075 MG TABLET PO SCH (10:21)
[2016-08-01] MEDS: GUAIFENESIN 600 MG TABLET.SA PO SCH ×2 (10:21→22:55)
[2016-08-01] MEDS: CEFEPIME HCL 2 GM in DEXTROSE 5%-WATER 50 ML IV SCH ×2 (10:22→22:55)
[2016-08-01] MEDS: ALBUTEROL SULFATE HFA (90 MCG/PUFF) 200 PUFF/8.5 GM MDI IH SCH ×4 (10:22→23:11)
[2016-08-01] MEDS: LEVOFLOXACIN 500 MG/D5W RTU 100 ML IV SCH (10:22)
--- NOTE | 2016-08-01 10:46 | PDOC CONSULTATION ---
Consultation Consult Date: 08/01/16 Consult reason:: Lung cancer history and possible recurrence History of Present Illness Admission Date/PCP: 07/29/16 16:42 OJSE CONTRERAS, History of Present Illness: JOSEPH CARRILLO is a 75 year old male with a h/o Stage I NSCLC s/p RUL lobectomy [place] [address] Copeland at [facility] who was admitted with profound weakness and obstructed Right lung and suspicious liver lesion. The family relates that on follow up with Dr. Copeland in March his CXR was clear and he was 5 years out at that point. Unfortunately, he has had progressive weight loss of approximately 40 pounds and presented in respiratory distress with CT showing obstructed right lung and about 500cc of effusion with changes in the liver consistent with mets. He has had confusion as well and a non-contrasted CT was negative other than chronic microvascular changes. He is currently on treatment for post-obstructive PNA and megace was added for appetite stimulation. Past Medical History Cardiac Medical History: Reports: Hyperlipidema, Hypertension Denies: Myocardial Infarction Pulmonary Medical History: Reports: Bronchitis, Chronic Obstructive Pulmonary Disease (COPD) Denies: Asthma Neurological Medical History: Denies: Seizures Endocrine Medical History: Reports: Hypothyroidism Malignancy Medical History: Reports: Lung Cancer - Stage IA status post upper lobectomy GI Medical History: Reports: Gastroesophageal Reflux Disease Denies: Hepatitis, Hiatal Hernia Musculoskeltal Medical History: Reports: Arthritis Psychiatric Medical History: Reports: Depression - anxiety Hematology: Denies: Anemia, Sickle Cell Disease Past Surgical History Past Surgical History: Reports: Herniorrhaphy, Other - Upper lobectomy right lung Denies: Pacemaker Social History Lives with: Family Smoking Status: Former Smoker Last Time Smoked: more than 10 years ago Frequency of Alcohol Use: None Hx Recreational Drug Use: No Drugs: None Hx Prescription Drug Abuse: No - Advance Directive Resuscitation Status: Full Code Family History Family History: Reviewed & Not Pertinent Parental Family History Reviewed: Yes Children Family History Reviewed: Yes Sibling(s) Family History Reviewed.: Yes Medication/Allergy Home Medications: Albuterol Sulfate [Proair HFA Inhalation Aerosol 8.5 gm MDI] 2 puff IH QID 07/29 Cetirizine HCl [Zyrtec 10 mg Tablet] 10 mg PO DAILY 07/29/16 Esomeprazole Magnesium [Nexium] 40 mg PO BID 07/29/16 Levothyroxine Sodium [Synthroid 0.075 mg Tablet] 0.075 mg PO DAILY 07/29/16 Lorazepam [Ativan 1 mg Tablet] 1 mg PO BIDP PRN 07/29/16 Pravastatin Sodium [Pravachol] 40 mg PO DAILY 07/29/16 Prochlorperazine Maleate [Compazine 5 mg Tablet] 5 mg PO TIDP PRN 07/29/16 Tiotropium [place] [Spiriva Handihaler 5 Cap/Kit (18 Mcg/Cap)] 1 puff IH DAILY 07/29/16 Allergies/Adverse Reactions: No Known Allergies Allergy (Unverified 09/03/10 10:25) Review of Systems Constitutional: PRESENT: weakness, weight loss Nose, Mouth, and Throat: PRESENT: other - Dry mouth Respiratory: PRESENT: dyspnea Neurological: PRESENT: as per HPI Endocrine: PRESENT: other - Denies knowledge of prior low platelets or bleeding Physical Exam Vital Signs: Temp Pulse Resp BP Pulse Ox 97.4 F 93 20 125/91 H 94 08/01/16 07:59 08/01/16 07:59 08/01/16 07:59 08/01/16 07:59 08/01/16 07:59 Intake & Output 07/31/16 08/01/16 08/02/16 06:59 06:59 06:59 Intake Total 3569 1332 Output Total 7169 1570 Balance 1594 -238 Weight 76.6 kg 73.7 kg General appearance: PRESENT: disheveled, mild distress, other - thin and chronically ill appearing Eye exam: PRESENT: EOMI, PERRLA, other - cataracts Ear exam: PRESENT: normal external ear exam Mouth exam: PRESENT: dry mucosa Teeth exam: PRESENT: edentulous Respiratory exam: PRESENT: accessory muscle use, other - No BS on the right Cardiovascular exam: PRESENT: tachycardia GI/Abdominal exam: PRESENT: normal bowel sounds, soft Musculoskeletal exam: PRESENT: other - atrophied Neurological exam: PRESENT: awake, CN II-XII grossly intact Results Laboratory Results: 08/01/16 04:12 08/01/16 04:12 07/31/16 07/31/16 08/01/16 14:23 14:30 04:12 WBC RBC Hgb Hct MCV MCH MCHC RDW Plt Count Seg Neutrophils % Lymphocytes % Monocytes % Eosinophils % Basophils % Absolute Neutrophils Absolute Lymphocytes Absolute Monocytes Absolute Eosinophils Absolute Basophils VBG pH 7.44 H VBG pCO2 24.9 L VBG HCO3 16.6 L VBG Base Excess -5.6 Sodium 137.7 Potassium 4.5 Chloride 105 Carbon Dioxide 18 L Anion Gap 15 BUN 17 Creatinine 0.79 Est GFR ( Amer) > 60 Est GFR (Non-Af Amer) > 60 Glucose 73 L Calcium 10.3 H Total Bilirubin 1.5 H AST 213 H ALT 97 H Alkaline Phosphatase 308 H Ammonia 24.7 Total Protein 6.4 Albumin 3.0 L 08/01/16 04:12 WBC 11.7 H RBC 4.66 Hgb 14.0 Hct 41.2 MCV 88 MCH 30.0 MCHC 34.0 RDW 14.2 H Plt Count 36 L Seg Neutrophils % Not Reportable Lymphocytes % Not Reportable Monocytes % Not Reportable Eosinophils % Not Reportable Basophils % Not Reportable Absolute Neutrophils Not Reportable Absolute Lymphocytes Not Reportable Absolute Monocytes Not Reportable Absolute Eosinophils Not Reportable Absolute Basophils Not Reportable VBG pH VBG pCO2 VBG HCO3 VBG Base Excess Sodium Potassium Chloride Carbon Dioxide Anion Gap BUN Creatinine Est GFR ( Amer) Est GFR (Non-Af Amer) Glucose Calcium Total Bilirubin AST ALT Alkaline Phosphatase Ammonia Total Protein Albumin Impressions: Head CT 07/29/16 11:35 IMPRESSION: No acute intracranial abnormality identified. Age-related brain matter volume loss. Chronic microvascular ischemic disease changes noted in the supratentorial white matter. Abdomen/Pelvis CT 07/29/16 13:00 IMPRESSION: 1. There appears to be multiple hypoattenuating lesion seen throughout the liver with new nodular contour of the liver. The largest of these hypoattenuated lesions measures approximate 1.6 cm in segment 6 of the liver. These are doubtful an not seen on prior studies lobe comparison is somewhat limited as the prior studies not performed with contrast. Contrast opacification liver is suboptimal on this study therefore limiting evaluation of these lesions that. There also appears to be multiple enlarged lymph nodes and/or mass in the danica hepatis region of the liver. Therefore this could represent cirrhotic change in liver with hyperplastic nodules and reactive adenopathy though underlying malignancy with metastasis the liver and lymph nodes in the danica hepatis is not entirely excluded. Further workup is warranted. Liver could be further evaluated with dedicated MRI of the liver with contrast. 2. Parenchymal consolidation noted in the right middle and lower lobes concerning for infectious infiltrate common not completely evaluated on this study. Chest CT 07/31/16 00:00 IMPRESSION: Collapse of the right lung with bronchial cut off sign suspicious for endobronchial lesion. Mediastinal adenopathy. Chest X-Ray 07/31/16 06:00 IMPRESSION: There is dense opacification of the right hemithorax likely representing significant pleural effusion associated atelectasis/infiltrate. There is increased pulmonary vascular distention and interstitial edema noted in the left lung. No focal opacities on the left. Assessment & Plan - Diagnosis (1) Agitation Is this a current diagnosis for this admission?: YesPlan: Haldol as indicated, discussed MRI of the head once we have further workup (2) COPD (chronic obstructive pulmonary disease) Is this a current diagnosis for this admission?: YesPlan: Would change to Nebs, continue O2, add in Solumedrol. (3) History of lung cancer Is this a current diagnosis for this admission?: YesPlan: Worried about recurrence but also could be new primary especially small cell given the sudden onset and same risk for new primary with h/o tobacco use (4) Liver lesion Is this a current diagnosis for this admission?: YesPlan: Scheduled for biopsy tomorrow (5) Right lower lobe pneumonia Qualifiers: Pneumonia type: due to unspecified organism Qualified Code(s): J18.1 - Lobar pneumonia, unspecified organism Plan: Will consult Dr. Crisostomo about the possibility of XRT to open up the right lung once we have tissue (6) Thrombocytopenia Is this a current diagnosis for this admission?: YesPlan: Will check labs but transfuse prior to his procedure - Time Time Spent: Greater than 70 Minutes Critical Time spent with patient: 35 or more minutes - Inpatient Certification Medical Necessity: Need for IV Antibiotics
[2016-08-01] MEDS: LORAZEPAM 1 MG TABLET PO PRN ×2 (11:27→22:55)
[2016-08-01] MEDS ORDERED: LACTULOSE SYRUP 20 GM/30 ML UDCUP PO ONE (17:50)
[2016-08-01] MEDS ORDERED: HALOPERIDOL LACTATE INJ 5 MG/1 ML VIAL IV ONE (17:51)
[2016-08-01] MEDS ORDERED: LORAZEPAM INJ 2 MG/1 ML VIAL IV PRN (17:53)
[2016-08-01] MEDS ORDERED: NORMAL SALINE 1000 ML 1,000 ML IV PRN (17:53)
[2016-08-01] MEDS: METHYLPREDNISOLONE INJ 125 MG/2 ML SDV IV SCH ×2 (18:31→22:55)
[2016-08-01] MEDS: IPRATROPIUM/ALBUTEROL 0.5-2.5 MG/3 ML AMPUL NEB PRN (19:36)
[2016-08-01] MEDS ORDERED: MAGNESIUM SULFATE 2 GM/50 ML RTUPB IV ONE (20:15)
[2016-08-01] MEDS ORDERED: MAGNESIUM SULFATE/D5W 2 GM/200 ML RTUPB IV ONE ×2 (20:15→20:45)
[2016-08-01 21:10] LABS: HEMATOCRIT 43.2 % (37.9-51.0); HEMOGLOBIN 14.8 g/dL (13.5-17.0); HGB HCT DIFFERENCE 1.2; MEAN CORPUSCULAR HEMOGLOBIN 30.2 pg (27.0-33.4); MEAN CORPUSCULAR HGB CONC 34.2 g/dL (32.0-36.0); MEAN CORPUSCULAR VOLUME 88 fl (80-97); RED BLOOD COUNT 4.89 10^6/uL (4.35-5.55); RED CELL DISTRIBUTION WIDTH 14.1 % (11.5-14.0); WHITE BLOOD COUNT 11.6 10^3/uL (4.0-10.5)
[2016-08-01] MEDS ORDERED: FAMOTIDINE INJ/PF 20 MG/2 ML SDV IV SCH (22:00)
[2016-08-01] MEDS: FAMOTIDINE INJ/PF 20 MG/2 ML SDV IV SCH (22:56)
[2016-08-02 04:37] LABS: ALANINE AMINOTRANSFERASE 90 U/L (21-72); ALBUMIN 3.2 g/dL (3.5-5.0); ALKALINE PHOSPHATASE 342 U/L (38-126); ANION GAP 15 (5-19); ASPARTATE AMINO TRANSFERASE 213 U/L (17-59); BILIRUBIN,TOTAL 1.4 mg/dL (0.2-1.3); BLOOD UREA NITROGEN 23 mg/dL (7-20); CALCIUM 10.6 mg/dL (8.4-10.2); CARBON DIOXIDE 15 mmol/L (22-30); CHLORIDE 106 mmol/L (98-107); CREATININE RESULT 0.78 mg/dL (0.52-1.25); GLUCOSE 139 mg/dL (75-110); POTASSIUM 4.8 mmol/L (3.6-5.0); SODIUM 136.2 mmol/L (137-145); TOTAL PROTEIN 6.7 g/dL (6.3-8.2)
[2016-08-02 04:46] LABS: HEMATOCRIT 42.9 % (37.9-51.0); HEMOGLOBIN 14.4 g/dL (13.5-17.0); HGB HCT DIFFERENCE 0.3; MEAN CORPUSCULAR HEMOGLOBIN 29.9 pg (27.0-33.4); MEAN CORPUSCULAR HGB CONC 33.6 g/dL (32.0-36.0); MEAN CORPUSCULAR VOLUME 89 fl (80-97); RED BLOOD COUNT 4.82 10^6/uL (4.35-5.55); RED CELL DISTRIBUTION WIDTH 14.3 % (11.5-14.0); WHITE BLOOD COUNT 11.7 10^3/uL (4.0-10.5)
[2016-08-02 05:06] LABS: CARCINOEMBRYONIC ANTIGEN 3.6 ng/mL (<3.0)
[2016-08-02 05:08] LABS: LDH 10102 U/L (313-618)
[2016-08-02 05:18] LABS: BAND NEUTROPHILS % (MANUAL) 2 % (3-5); BASOPHILS % (MANUAL) 0 % (0-2); EOSINOPHILS % (MANUAL) 1 % (0-6); LYMPHOCYTES % (MANUAL) 11 % (13-45); TOTAL CELLS COUNTED 100
[2016-08-02 05:21] LABS: TOXIC VACUOLATION PRESENT
[2016-08-02 05:22] LABS: ANISOCYTOSIS SLIGHT; OVALOCYTES 1+; POIKILOCYTOSIS 1+; TEAR DROP CELLS SLIGHT
[2016-08-02] MEDS: METHYLPREDNISOLONE INJ 125 MG/2 ML SDV IV SCH ×3 (05:32→21:31)
[2016-08-02] MEDS ORDERED: LACTULOSE SYRUP 20 GM/30 ML UDCUP PO SCH (06:00)
[2016-08-02 08:18] LABS: PROTHROMBIN TIME 16.9 SEC (11.4-15.4)
[2016-08-02 08:19] LABS: PARTIAL THROMBOPLASTIN TIME 47.4 SEC (23.5-35.8)
--- NOTE | 2016-08-02 08:24 | PDOC PROGRESS REPORT ---
Subjective Progress Note for:: 08/01/16 Subjective:: Patient is seen on morning rounds. He had a better night his who is at bedside. He was agitated and restless he was the night prior. He has been somewhat more coherent than he was yesterday. He is drinking some, and able to take his medications. He states he doesn't feel good. He feels weak. He denies any dyspnea at the present time. He denies any nausea, abdominal pain, or diarrhea. He denies any significant arthralgias or myalgias at present time. Physical Exam Vital Signs: Temp Pulse Resp BP Pulse Ox 97.4 F 93 20 125/91 H 94 08/01/16 07:59 08/01/16 07:59 08/01/16 07:59 08/01/16 07:59 08/01/16 07:59 Intake & Output 07/31/16 08/01/16 08/02/16 06:59 06:59 06:59 Intake Total 3569 1332 Output Total 1975 1570 Balance 1594 -238 Weight 76.6 kg 73.7 kg General appearance: PRESENT: no acute distress, thin, well-developed Head exam: PRESENT: atraumatic, normocephalic Eye exam: PRESENT: conjunctiva pink, EOMI, PERRLA. ABSENT: scleral icterus Ear exam: PRESENT: normal external ear exam Mouth exam: PRESENT: moist, tongue midline Neck exam: ABSENT: carotid bruit, JVD, lymphadenopathy, thyromegaly Respiratory exam: PRESENT: unlabored, other - absence of breath sounds in right chest. ABSENT: rales, rhonchi, wheezes Cardiovascular exam: PRESENT: RRR. ABSENT: diastolic murmur, rubs, systolic murmur Pulses: PRESENT: normal dorsalis pedis pul Vascular exam: PRESENT: normal capillary refill GI/Abdominal exam: PRESENT: normal bowel sounds, soft Rectal exam: PRESENT: deferred Extremities exam: PRESENT: full ROM. ABSENT: calf tenderness, clubbing, pedal edema Neurological exam: PRESENT: altered, awake, oriented to person, CN II-XII grossly intact Psychiatric exam: PRESENT: appropriate affect, normal mood Skin exam: PRESENT: dry, intact, warm. ABSENT: cyanosis, rash Results Laboratory Results: 08/01/16 04:12 08/01/16 04:12 0307/31/16 08/01/16 14:23 14:30 04:12 WBC RBC Hgb Hct MCV MCH MCHC RDW Plt Count Seg Neutrophils % Lymphocytes % Monocytes % Eosinophils % Basophils % Absolute Neutrophils Absolute Lymphocytes Absolute Monocytes Absolute Eosinophils Absolute Basophils VBG pH 7.44 H VBG pCO2 24.9 L VBG HCO3 16.6 L VBG Base Excess -5.6 Sodium 137.7 Potassium 4.5 Chloride 105 Carbon Dioxide 18 L Anion Gap 15 BUN 17 Creatinine 0.79 Est GFR ( Amer) > 60 Est GFR (Non-Af Amer) > 60 Glucose 73 L Calcium 10.3 H Total Bilirubin 1.5 H AST 213 H ALT 97 H Alkaline Phosphatase 308 H Ammonia 24.7 Total Protein 6.4 Albumin 3.0 L 08/01/16 04:12 WBC 11.7 H RBC 4.66 Hgb 14.0 Hct 41.2 MCV 88 MCH 30.0 MCHC 34.0 RDW 14.2 H Plt Count 36 L Seg Neutrophils % Not Reportable Lymphocytes % Not Reportable Monocytes % Not Reportable Eosinophils % Not Reportable Basophils % Not Reportable Absolute Neutrophils Not Reportable Absolute Lymphocytes Not Reportable Absolute Monocytes Not Reportable Absolute Eosinophils Not Reportable Absolute Basophils Not Reportable VBG pH VBG pCO2 VBG HCO3 VBG Base Excess Sodium Potassium Chloride Carbon Dioxide Anion Gap BUN Creatinine Est GFR ( Amer) Est GFR (Non-Af Amer) Glucose Calcium Total Bilirubin AST ALT Alkaline Phosphatase Ammonia Total Protein Albumin Impressions: Head CT 07/29/16 11:35 IMPRESSION: No acute intracranial abnormality identified. Age-related brain matter volume loss. Chronic microvascular ischemic disease changes noted in the supratentorial white matter. Abdomen/Pelvis CT 07/29/16 13:00 IMPRESSION: 1. There appears to be multiple hypoattenuating lesion seen throughout the liver with new nodular contour of the liver. The largest of these hypoattenuated lesions measures approximate 1.6 cm in segment 6 of the liver. These are doubtful an not seen on prior studies lobe comparison is somewhat limited as the prior studies not performed with contrast. Contrast opacification liver is suboptimal on this study therefore limiting evaluation of these lesions that. There also appears to be multiple enlarged lymph nodes and/or mass in the danica hepatis region of the liver. Therefore this could represent cirrhotic change in liver with hyperplastic nodules and reactive adenopathy though underlying malignancy with metastasis the liver and lymph nodes in the danica hepatis is not entirely excluded. Further workup is warranted. Liver could be further evaluated with dedicated MRI of the liver with contrast. 2. Parenchymal consolidation noted in the right middle and lower lobes concerning for infectious infiltrate common not completely evaluated on this study. Chest CT 07/31/16 00:00 IMPRESSION: Collapse of the right lung with bronchial cut off sign suspicious for endobronchial lesion. Mediastinal adenopathy. Chest X-Ray 07/31/16 06:00 IMPRESSION: There is dense opacification of the right hemithorax likely representing significant pleural effusion associated atelectasis/infiltrate. There is increased pulmonary vascular distention and interstitial edema noted in the left lung. No focal opacities on the left. Assessment & Plan - Diagnosis (1) Pneumonia Qualifiers: Pneumonia type: due to unspecified organism Laterality: right Lung location: lower lobe of lung Qualified Code(s): J18.1 - Lobar pneumonia, unspecified organism Is this a current diagnosis for this admission?: YesPlan: Complete collapse of the right lung due to endobronchial lesion. (2) History of lung cancer Is this a current diagnosis for this admission?: YesPlan: As above. Patient has history of a right upper lobectomy for non-small lung cancer resected in 2010. Present presentation is worrisome for recurrence of lung cancer which appears to be metastatic. It could be reoccurence of his prior cancer, however with rapid progression concern for a new small cell lung cancer. Patient according to his lost over 30 pounds last 4 months. He will need tissue diagnosis, have consulted oncology Dr Brenda Han. He will most likely need platelet transfusion prior to biopsy. Radiation oncology consult after. (3) Thrombocytopenia Is this a current diagnosis for this admission?: Yes (4) Agitation Is this a current diagnosis for this admission?: Yes (5) Liver lesion Is this a current diagnosis for this admission?: Yes
--- NOTE | 2016-08-02 08:46 | PDOC PROGRESS REPORT ---
Subjective Progress Note for:: 08/02/16 Subjective:: Patient is seen on morning rounds. He had periods of agitation overnight. Nursing reports 15-20 seconds of apnea when he sleeps. He was unable to get platelet transfusion last evening due to crossmatch problem. Platelets are coming sometime today. He will need transfusion prior to biopsy. He states he doesn't feel good. He feels weak. He denies any dyspnea at the present time. He denies any nausea, abdominal pain, or diarrhea. He denies any significant arthralgias or myalgias at present time. Physical Exam Vital Signs: Temp Pulse Resp BP Pulse Ox 97.3 F 97 16 120/82 95 08/02/16 07:14 08/02/16 07:14 08/02/16 07:14 08/02/16 07:14 08/02/16 07:14 Intake & Output 08/01/16 08/02/16 08/03/16 06:59 06:59 06:59 Intake Total 1332 1742 Output Total 1570 622 Balance -238 1120 Weight 73.7 kg 76.9 kg General appearance: PRESENT: no acute distress, thin, well-developed Head exam: PRESENT: atraumatic, normocephalic Eye exam: PRESENT: conjunctiva pink, EOMI, PERRLA. ABSENT: scleral icterus Ear exam: PRESENT: normal external ear exam Mouth exam: PRESENT: moist, tongue midline Neck exam: ABSENT: carotid bruit, JVD, lymphadenopathy, thyromegaly Respiratory exam: PRESENT: clear to auscultation marce. ABSENT: rales, rhonchi, wheezes Cardiovascular exam: PRESENT: RRR. ABSENT: diastolic murmur, rubs, systolic murmur Pulses: PRESENT: normal dorsalis pedis pul Vascular exam: PRESENT: normal capillary refill GI/Abdominal exam: PRESENT: normal bowel sounds, soft. ABSENT: distended, guarding, mass, organolmegaly, rebound, tenderness Rectal exam: PRESENT: deferred Extremities exam: PRESENT: full ROM. ABSENT: calf tenderness, clubbing, pedal edema Neurological exam: PRESENT: alert, awake, oriented to person, oriented to place , oriented to time, oriented to situation, CN II-XII grossly intact. ABSENT: motor sensory deficit Psychiatric exam: PRESENT: appropriate affect, normal mood. ABSENT: homicidal ideation, suicidal ideation Skin exam: PRESENT: dry, intact, warm. ABSENT: cyanosis, rash Results Laboratory Results: 08/02/16 04:11 08/02/16 04:11 08/01/16 08/01/16 08/02/16 15:00 20:50 04:11 WBC 11.6 H 11.7 H RBC 4.89 4.82 Hgb 14.8 14.4 Hct 43.2 42.9 MCV 88 89 MCH 30.2 29.9 MCHC 34.2 33.6 RDW 14.1 H 14.3 H Plt Count 36 L 35 L Seg Neutrophils % Not Reportable Lymphocytes % Not Reportable Monocytes % Not Reportable Eosinophils % Not Reportable Basophils % Not Reportable Absolute Neutrophils Not Reportable Absolute Lymphocytes Not Reportable Absolute Monocytes Not Reportable Absolute Eosinophils Not Reportable Absolute Basophils Not Reportable Sodium Potassium Chloride Carbon Dioxide Anion Gap BUN Creatinine Est GFR ( Amer) Est GFR (Non-Af Amer) Glucose Calcium Total Bilirubin AST ALT Alkaline Phosphatase Total Protein Albumin TSH Blood Type O POSITIVE 08/02/16 08/02/16 04:11 04:11 WBC RBC Hgb Hct MCV MCH MCHC RDW Plt Count Seg Neutrophils % Lymphocytes % Monocytes % Eosinophils % Basophils % Absolute Neutrophils Absolute Lymphocytes Absolute Monocytes Absolute Eosinophils Absolute Basophils Sodium 136.2 L Potassium 4.8 Chloride 106 Carbon Dioxide 15 L Anion Gap 15 BUN 23 H Creatinine 0.78 Est GFR ( Amer) > 60 Est GFR (Non-Af Amer) > 60 Glucose 139 H Calcium 10.6 H Total Bilirubin 1.4 H AST 213 H ALT 90 H Alkaline Phosphatase 342 H Total Protein 6.7 Albumin 3.2 L TSH 0.24 L Blood Type Impressions: Head CT 07/29/16 11:35 IMPRESSION: No acute intracranial abnormality identified. Age-related brain matter volume loss. Chronic microvascular ischemic disease changes noted in the supratentorial white matter. Abdomen/Pelvis CT 07/29/16 13:00 IMPRESSION: 1. There appears to be multiple hypoattenuating lesion seen throughout the liver with new nodular contour of the liver. The largest of these hypoattenuated lesions measures approximate 1.6 cm in segment 6 of the liver. These are doubtful an not seen on prior studies lobe comparison is somewhat limited as the prior studies not performed with contrast. Contrast opacification liver is suboptimal on this study therefore limiting evaluation of these lesions that. There also appears to be multiple enlarged lymph nodes and/or mass in the danica hepatis region of the liver. Therefore this could represent cirrhotic change in liver with hyperplastic nodules and reactive adenopathy though underlying malignancy with metastasis the liver and lymph nodes in the danica hepatis is not entirely excluded. Further workup is warranted. Liver could be further evaluated with dedicated MRI of the liver with contrast. 2. Parenchymal consolidation noted in the right middle and lower lobes concerning for infectious infiltrate common not completely evaluated on this study. Chest CT 07/31/16 00:00 IMPRESSION: Collapse of the right lung with bronchial cut off sign suspicious for endobronchial lesion. Mediastinal adenopathy. Chest X-Ray 07/31/16 06:00 IMPRESSION: There is dense opacification of the right hemithorax likely representing significant pleural effusion associated atelectasis/infiltrate. There is increased pulmonary vascular distention and interstitial edema noted in the left lung. No focal opacities on the left. Assessment & Plan - Diagnosis (1) Pneumonia Qualifiers: Pneumonia type: due to unspecified organism Laterality: right Lung location: lower lobe of lung Qualified Code(s): J18.1 - Lobar pneumonia, unspecified organism Is this a current diagnosis for this admission?: YesPlan: Complete collapse of the right lung due to endobronchial lesion. (2) History of lung cancer Is this a current diagnosis for this admission?: YesPlan: As above. Patient has history of a right upper lobectomy for non-small lung cancer resected in 2010. Present presentation is worrisome for recurrence of lung cancer which appears to be metastatic. It could be reoccurence of his prior cancer, however with rapid progression concern for a new small cell lung cancer. Patient according to his lost over 30 pounds last 4 months. He will need tissue diagnosis, have consulted oncology Dr Brenda Han. He will most likely need platelet transfusion prior to biopsy. Radiation oncology consult after. (3) Thrombocytopenia Is this a current diagnosis for this admission?: YesPlan: Awaiting compatible platelets to transfuse. Platelet count 35K today (4) Agitation Is this a current diagnosis for this admission?: YesPlan: Patient was extremely agitated overnight requiring Ativan and Haldol. Patient did have CT of his head was unremarkable any lesions. We will check ammonia levels. Continue when necessary anxiolytics (5) Liver lesion Is this a current diagnosis for this admission?: YesPlan: Obvious concern for metastatic disease - Time Time Spent with patient: 15-24 minutes Critical Time spent with patient: 15-24 minutes Medications reviewed and adjusted accordingly: Yes
[2016-08-02] MEDS: IPRATROPIUM/ALBUTEROL 0.5-2.5 MG/3 ML AMPUL NEB PRN (09:45)
[2016-08-02] MEDS: TIOTROPIUM BROMIDE DPI 5 CAP/KIT (18 MCG/CAP) IH SCH (10:51)
[2016-08-02] MEDS: LEVOTHYROXINE SODIUM 0.075 MG TABLET PO SCH (10:51)
[2016-08-02] MEDS: GUAIFENESIN 600 MG TABLET.SA PO SCH ×2 (10:51→21:25)
[2016-08-02] MEDS: LEVOFLOXACIN 500 MG/D5W RTU 100 ML IV SCH (12:25)
[2016-08-02] MEDS: MEGESTROL ACETATE SUSP 400 MG/10 ML UDCUP PO SCH (12:26)
[2016-08-02] MEDS: CEFEPIME HCL 2 GM in DEXTROSE 5%-WATER 50 ML IV SCH ×2 (12:30→21:25)
[2016-08-02] MEDS: FAMOTIDINE INJ/PF 20 MG/2 ML SDV IV SCH ×2 (12:30→21:28)
[2016-08-02] MEDS: ALBUTEROL SULFATE HFA (90 MCG/PUFF) 200 PUFF/8.5 GM MDI IH SCH ×4 (12:31→21:30)
--- NOTE | 2016-08-02 14:23 | PDOC PROGRESS REPORT ---
Subjective Progress Note for:: 08/02/16 Subjective:: Drowsy this am but appears to be better with regards to breathing. Physical Exam Vital Signs: Temp Pulse Resp BP Pulse Ox 97.3 F 77 22 H 120/82 96 08/02/16 07:14 08/02/16 09:45 08/02/16 09:45 08/02/16 07:14 08/02/16 09:45 Intake & Output 08/01/16 08/02/16 08/03/16 06:59 06:59 06:59 Intake Total 1332 1742 Output Total 1570 622 Balance -238 1120 Weight 73.7 kg 76.9 kg 76.9 kg General appearance: PRESENT: no acute distress Head exam: PRESENT: normocephalic Eye exam: PRESENT: EOMI Ear exam: PRESENT: normal external ear exam Mouth exam: PRESENT: dry mucosa Respiratory exam: PRESENT: accessory muscle use, other - Diminished BS on the right and clear on the left Cardiovascular exam: PRESENT: tachycardia GI/Abdominal exam: PRESENT: normal bowel sounds, soft Neurological exam: PRESENT: awake, CN II-XII grossly intact Results Laboratory Results: 08/02/16 04:11 08/02/16 04:11 08/01/16 08/01/16 08/02/16 15:00 20:50 04:11 WBC 11.6 H 11.7 H RBC 4.89 4.82 Hgb 14.8 14.4 Hct 43.2 42.9 MCV 88 89 MCH 30.2 29.9 MCHC 34.2 33.6 RDW 14.1 H 14.3 H Plt Count 36 L 35 L Seg Neutrophils % Not Reportable Lymphocytes % Not Reportable Monocytes % Not Reportable Eosinophils % Not Reportable Basophils % Not Reportable Absolute Neutrophils Not Reportable Absolute Lymphocytes Not Reportable Absolute Monocytes Not Reportable Absolute Eosinophils Not Reportable Absolute Basophils Not Reportable Sodium Potassium Chloride Carbon Dioxide Anion Gap BUN Creatinine Est GFR ( Amer) Est GFR (Non-Af Amer) Glucose Calcium Total Bilirubin AST ALT Alkaline Phosphatase Total Protein Albumin TSH Blood Type O POSITIVE 08/02/16 08/02/16 04:11 04:11 WBC RBC Hgb Hct MCV MCH MCHC RDW Plt Count Seg Neutrophils % Lymphocytes % Monocytes % Eosinophils % Basophils % Absolute Neutrophils Absolute Lymphocytes Absolute Monocytes Absolute Eosinophils Absolute Basophils Sodium 136.2 L Potassium 4.8 Chloride 106 Carbon Dioxide 15 L Anion Gap 15 BUN 23 H Creatinine 0.78 Est GFR ( Amer) > 60 Est GFR (Non-Af Amer) > 60 Glucose 139 H Calcium 10.6 H Total Bilirubin 1.4 H AST 213 H ALT 90 H Alkaline Phosphatase 342 H Total Protein 6.7 Albumin 3.2 L TSH 0.24 L Blood Type Impressions: Abdomen/Pelvis CT 07/29/16 13:00 IMPRESSION: 1. There appears to be multiple hypoattenuating lesion seen throughout the liver with new nodular contour of the liver. The largest of these hypoattenuated lesions measures approximate 1.6 cm in segment 6 of the liver. These are doubtful an not seen on prior studies lobe comparison is somewhat limited as the prior studies not performed with contrast. Contrast opacification liver is suboptimal on this study therefore limiting evaluation of these lesions that. There also appears to be multiple enlarged lymph nodes and/or mass in the danica hepatis region of the liver. Therefore this could represent cirrhotic change in liver with hyperplastic nodules and reactive adenopathy though underlying malignancy with metastasis the liver and lymph nodes in the danica hepatis is not entirely excluded. Further workup is warranted. Liver could be further evaluated with dedicated MRI of the liver with contrast. 2. Parenchymal consolidation noted in the right middle and lower lobes concerning for infectious infiltrate common not completely evaluated on this study. Chest CT 07/31/16 00:00 IMPRESSION: Collapse of the right lung with bronchial cut off sign suspicious for endobronchial lesion. Mediastinal adenopathy. Chest X-Ray 07/31/16 06:00 IMPRESSION: There is dense opacification of the right hemithorax likely representing significant pleural effusion associated atelectasis/infiltrate. There is increased pulmonary vascular distention and interstitial edema noted in the left lung. No focal opacities on the left. Head CT 08/02/16 08:47 IMPRESSION: Mild cerebral atrophy and moderate cerebellar atrophy. Associated ventricular dilatation. No acute intracranial pathology. Assessment & Plan - Diagnosis (1) Agitation Is this a current diagnosis for this admission?: YesPlan: Head CT today is negative with contrast (2) COPD (chronic obstructive pulmonary disease) Qualifiers: COPD type: COPD with acute lower respiratory infection Qualified Code(s): J44.0 - Chronic obstructive pulmonary disease with acute lower respiratory infection Is this a current diagnosis for this admission?: YesPlan: Would continue antibiotics and pulmonary toilet (3) History of lung cancer Is this a current diagnosis for this admission?: YesPlan: Awaiting biopsy and spoke with Dr. Crisostomo about concerns for new primary with either small cell or NSCL cancer. Will arrange for platelets and biopsy (4) Liver lesion Is this a current diagnosis for this admission?: Yes (5) Right lower lobe pneumonia Qualifiers: Pneumonia type: due to unspecified organism Qualified Code(s): J18.1 - Lobar pneumonia, unspecified organism (6) Thrombocytopenia Is this a current diagnosis for this admission?: YesPlan: Not responding to steroids but have transfusion scheduled. - Time Time Spent with patient: 35 or more minutes Critical Time spent with patient: 25-34 minutes Medications reviewed and adjusted accordingly: Yes - Inpatient Certification I certify that my determination is in accordance with my understanding of Medicare's requirements for reasonable and necessary INPATIENT services [42 CFR 412.3e].: Yes Medical Necessity: Need for IV Antibiotics
[2016-08-02] MEDS ORDERED: TRAMADOL HCL 50 MG TABLET PO PRN (15:22)
[2016-08-02] MEDS ORDERED: HALOPERIDOL LACTATE INJ 5 MG/1 ML VIAL ONE (15:34)
[2016-08-02] MEDS: LORAZEPAM INJ 2 MG/1 ML VIAL IV PRN (16:13)
[2016-08-02] MEDS: LACTULOSE SYRUP 20 GM/30 ML UDCUP PO SCH ×2 (16:30→21:27)
[2016-08-02] MEDS: HALOPERIDOL LACTATE INJ 5 MG/1 ML VIAL IV PRN (21:40)
[2016-08-03] MEDS: LORAZEPAM INJ 2 MG/1 ML VIAL IV PRN (00:14)
[2016-08-03] MEDS: NORMAL SALINE 1000 ML 1,000 ML IV PRN ×2 (01:51→09:59)
[2016-08-03] MEDS: HALOPERIDOL LACTATE INJ 5 MG/1 ML VIAL IV PRN ×2 (03:53→19:02)
[2016-08-03 04:59] LABS: MEAN CORPUSCULAR HEMOGLOBIN 30.1 pg (27.0-33.4); MEAN CORPUSCULAR HGB CONC 34.2 g/dL (32.0-36.0); MEAN CORPUSCULAR VOLUME 88 fl (80-97); RED BLOOD COUNT 4.31 10^6/uL (4.35-5.55); RED CELL DISTRIBUTION WIDTH 14.5 % (11.5-14.0); WHITE BLOOD COUNT 16.8 10^3/uL (4.0-10.5)
[2016-08-03 05:21] LABS: BAND NEUTROPHILS % (MANUAL) 3 % (3-5); BASOPHILS % (MANUAL) 0 % (0-2); EOSINOPHILS % (MANUAL) 0 % (0-6); LYMPHOCYTES % (MANUAL) 6 % (13-45); TOTAL CELLS COUNTED 100
[2016-08-03 05:22] LABS: ANISOCYTOSIS 1+; OVALOCYTES SLIGHT; POIKILOCYTOSIS SLIGHT; POLYCHROMASIA SLIGHT; SMUDGE CELLS PRESENT
[2016-08-03] MEDS: METHYLPREDNISOLONE INJ 125 MG/2 ML SDV IV SCH ×3 (05:41→21:05)
[2016-08-03] MEDS: LACTULOSE SYRUP 20 GM/30 ML UDCUP PO SCH ×3 (05:49→21:09)
[2016-08-03] MEDS: CEFEPIME HCL 2 GM in DEXTROSE 5%-WATER 50 ML IV SCH ×2 (09:58→21:07)
[2016-08-03] MEDS: FAMOTIDINE INJ/PF 20 MG/2 ML SDV IV SCH (09:58)
[2016-08-03] MEDS: TIOTROPIUM BROMIDE DPI 5 CAP/KIT (18 MCG/CAP) IH SCH (09:59)
[2016-08-03] MEDS: ALBUTEROL SULFATE HFA (90 MCG/PUFF) 200 PUFF/8.5 GM MDI IH SCH ×4 (09:59→21:09)
[2016-08-03] MEDS ORDERED: NORMAL SALINE 1000 ML 1,000 ML IV PRN (10:33)
[2016-08-03 11:50] LABS: PATH REVIEW PATHOLOGIST REVIEWED
[2016-08-03] MEDS ORDERED: FENTANYL CITRATE INJ/PF 100 MCG/2 ML AMPUL ONE (11:54)
[2016-08-03] MEDS ORDERED: MIDAZOLAM 2 MG/2 ML INJ ONE (11:54)
--- NOTE | 2016-08-03 14:26 | PDOC PROGRESS REPORT ---
Subjective Progress Note for:: 08/03/16 Subjective:: Resting at present but apparently with a good night. Physical Exam Vital Signs: Temp Pulse Resp BP Pulse Ox 97.6 F 101 H 20 128/88 H 93 08/03/16 11:18 08/03/16 13:57 08/03/16 13:57 08/03/16 11:18 08/03/16 13:57 Intake & Output 08/02/16 08/03/16 08/04/16 06:59 06:59 06:59 Intake Total 1742 1478 Output Total 622 2 Balance 1120 1478 -2 Weight 76.9 kg 79.1 kg General appearance: PRESENT: no acute distress Head exam: PRESENT: normocephalic Eye exam: PRESENT: EOMI Ear exam: PRESENT: normal external ear exam Teeth exam: PRESENT: edentulous Respiratory exam: PRESENT: other - no BS on the right but the left is clear GI/Abdominal exam: PRESENT: normal bowel sounds, soft Results Laboratory Results: 08/03/16 04:18 08/02/16 04:11 08/01/16 08/03/16 15:00 04:18 WBC 16.8 H RBC 4.31 L Hgb 13.0 L Hct 38.0 MCV 88 MCH 30.1 MCHC 34.2 RDW 14.5 H Plt Count 62 L Seg Neutrophils % Not Reportable Lymphocytes % Not Reportable Monocytes % Not Reportable Eosinophils % Not Reportable Basophils % Not Reportable Absolute Neutrophils Not Reportable Absolute Lymphocytes Not Reportable Absolute Monocytes Not Reportable Absolute Eosinophils Not Reportable Absolute Basophils Not Reportable Blood Type O POSITIVE Impressions: Abdomen/Pelvis CT 07/29/16 13:00 IMPRESSION: 1. There appears to be multiple hypoattenuating lesion seen throughout the liver with new nodular contour of the liver. The largest of these hypoattenuated lesions measures approximate 1.6 cm in segment 6 of the liver. These are doubtful an not seen on prior studies lobe comparison is somewhat limited as the prior studies not performed with contrast. Contrast opacification liver is suboptimal on this study therefore limiting evaluation of these lesions that. There also appears to be multiple enlarged lymph nodes and/or mass in the danica hepatis region of the liver. Therefore this could represent cirrhotic change in liver with hyperplastic nodules and reactive adenopathy though underlying malignancy with metastasis the liver and lymph nodes in the danica hepatis is not entirely excluded. Further workup is warranted. Liver could be further evaluated with dedicated MRI of the liver with contrast. 2. Parenchymal consolidation noted in the right middle and lower lobes concerning for infectious infiltrate common not completely evaluated on this study. Chest CT 07/31/16 00:00 IMPRESSION: Collapse of the right lung with bronchial cut off sign suspicious for endobronchial lesion. Mediastinal adenopathy. Chest X-Ray 07/31/16 06:00 IMPRESSION: There is dense opacification of the right hemithorax likely representing significant pleural effusion associated atelectasis/infiltrate. There is increased pulmonary vascular distention and interstitial edema noted in the left lung. No focal opacities on the left. Head CT 08/02/16 08:47 IMPRESSION: Mild cerebral atrophy and moderate cerebellar atrophy. Associated ventricular dilatation. No acute intracranial pathology. Liver Biopsy CT 08/03/16 07:00 IMPRESSION: CT GUIDED LEFT LOBE LIVER BIOPSY PERFORMED ABOVE. PATHOLOGY PENDING. NO IMMEDIATE COMPLICATIONS. IV CONSCIOUS SEDATION Assessment & Plan - Diagnosis (1) Agitation Is this a current diagnosis for this admission?: Yes (2) COPD (chronic obstructive pulmonary disease) Qualifiers: COPD type: COPD with acute lower respiratory infection Qualified Code(s): J44.0 - Chronic obstructive pulmonary disease with acute lower respiratory infection Is this a current diagnosis for this admission?: Yes (3) History of lung cancer Is this a current diagnosis for this admission?: YesPlan: Awaiting biopsy of the liver today (4) Liver lesion Is this a current diagnosis for this admission?: Yes (5) Right lower lobe pneumonia Qualifiers: Pneumonia type: due to unspecified organism Qualified Code(s): J18.1 - Lobar pneumonia, unspecified organism Is this a current diagnosis for this admission?: YesPlan: Treatment per primary team (6) Thrombocytopenia Is this a current diagnosis for this admission?: YesPlan: Responded to platelet transfusion. - Time Time Spent with patient: 35 or more minutes Critical Time spent with patient: 25-34 minutes Medications reviewed and adjusted accordingly: Yes - Inpatient Certification Medical Necessity: Need for IV Antibiotics
[2016-08-03] MEDS: GUAIFENESIN 600 MG TABLET.SA PO SCH ×2 (14:54→21:09)
[2016-08-03] MEDS: LEVOTHYROXINE SODIUM 0.075 MG TABLET PO SCH (15:05)
[2016-08-03] MEDS: MEGESTROL ACETATE SUSP 400 MG/10 ML UDCUP PO SCH (15:05)
[2016-08-03] MEDS: LEVOFLOXACIN 500 MG TABLET PO SCH (15:05)
--- NOTE | 2016-08-03 17:07 | PDOC PROGRESS REPORT ---
Subjective Progress Note for:: 08/03/16 Subjective:: The patient was seen earlier today on rounds. The patient was minimally responsive. According to nursing staff the patient has not had any mood altering her mind altering medication and almost 24 hours. Given the history by nurse appears the patient's mentation has steadily declined since Tuesday. Spoke with the patient's regarding this and she is aware that the patient is in grave condition. The patient is unable to make decisions for himself thus his is his surrogate decision maker. The patient's elects to proceed with DO NOT RESUSCITATE DO NOT INTUBATE status. is to have liver biopsy today. Physical Exam Vital Signs: Temp Pulse Resp BP Pulse Ox 97.6 F 101 H 20 128/88 H 93 08/03/16 11:18 08/03/16 13:57 08/03/16 13:57 08/03/16 11:18 08/03/16 13:57 Intake & Output 08/01/16 08/02/16 08/03/16 23:59 23:59 23:59 Intake Total 1452 2323 11 Output Total 1592 0 2 Balance -140 2323 9 Weight 73.7 kg 76.9 kg 79.1 kg General appearance: PRESENT: no acute distress, cooperative, thin, well- developed Exam: Frail, chronically ill-appearing Head exam: PRESENT: atraumatic, normocephalic Eye exam: PRESENT: conjunctiva pale, EOMI, PERRLA. ABSENT: scleral icterus Ear exam: PRESENT: normal external ear exam Mouth exam: PRESENT: moist, tongue midline Neck exam: ABSENT: carotid bruit, JVD, lymphadenopathy, thyromegaly Respiratory exam: PRESENT: decreased breath sounds, symmetrical, unlabored. ABSENT: rales, rhonchi, tachypnea, wheezes Cardiovascular exam: PRESENT: RRR. ABSENT: diastolic murmur, rubs, systolic murmur Pulses: PRESENT: normal dorsalis pedis pul Vascular exam: PRESENT: normal capillary refill GI/Abdominal exam: PRESENT: normal bowel sounds, soft. ABSENT: distended, guarding, mass, organolmegaly, rebound, tenderness Rectal exam: PRESENT: deferred Extremities exam: PRESENT: full ROM. ABSENT: calf tenderness, clubbing, pedal edema Neurological exam: PRESENT: other - Obtunded and therefore unable to be fully assessed Skin exam: PRESENT: dry, intact, warm. ABSENT: cyanosis, rash Results Laboratory Results: 08/03/16 04:18 08/02/16 04:11 Impressions: Abdomen/Pelvis CT 07/29/16 13:00 IMPRESSION: 1. There appears to be multiple hypoattenuating lesion seen throughout the liver with new nodular contour of the liver. The largest of these hypoattenuated lesions measures approximate 1.6 cm in segment 6 of the liver. These are doubtful an not seen on prior studies lobe comparison is somewhat limited as the prior studies not performed with contrast. Contrast opacification liver is suboptimal on this study therefore limiting evaluation of these lesions that. There also appears to be multiple enlarged lymph nodes and/or mass in the danica hepatis region of the liver. Therefore this could represent cirrhotic change in liver with hyperplastic nodules and reactive adenopathy though underlying malignancy with metastasis the liver and lymph nodes in the danica hepatis is not entirely excluded. Further workup is warranted. Liver could be further evaluated with dedicated MRI of the liver with contrast. 2. Parenchymal consolidation noted in the right middle and lower lobes concerning for infectious infiltrate common not completely evaluated on this study. Chest CT 07/31/16 00:00 IMPRESSION: Collapse of the right lung with bronchial cut off sign suspicious for endobronchial lesion. Mediastinal adenopathy. Chest X-Ray 07/31/16 06:00 IMPRESSION: There is dense opacification of the right hemithorax likely representing significant pleural effusion associated atelectasis/infiltrate. There is increased pulmonary vascular distention and interstitial edema noted in the left lung. No focal opacities on the left. Head CT 08/02/16 08:47 IMPRESSION: Mild cerebral atrophy and moderate cerebellar atrophy. Associated ventricular dilatation. No acute intracranial pathology. Liver Biopsy CT 08/03/16 07:00 IMPRESSION: CT GUIDED LEFT LOBE LIVER BIOPSY PERFORMED ABOVE. PATHOLOGY PENDING. NO IMMEDIATE COMPLICATIONS. IV CONSCIOUS SEDATION Assessment & Plan - Diagnosis (1) Metastatic malignant neoplasm to lung Qualifiers: Laterality: unspecified laterality Qualified Code(s): C78.00 - Secondary malignant neoplasm of unspecified lung Is this a current diagnosis for this admission?: Yes (2) Liver lesion Is this a current diagnosis for this admission?: Yes (3) COPD (chronic obstructive pulmonary disease) Qualifiers: COPD type: COPD with acute lower respiratory infection Qualified Code(s): J44.0 - Chronic obstructive pulmonary disease with acute lower respiratory infection Is this a current diagnosis for this admission?: Yes (4) GERD (gastroesophageal reflux disease) Is this a current diagnosis for this admission?: Yes (5) History of lung cancer Is this a current diagnosis for this admission?: YesPlan: The patient has continued to decline. Will consult palliative care. (6) Hypothyroidism Is this a current diagnosis for this admission?: Yes (7) Lower back pain Is this a current diagnosis for this admission?: Yes (8) Sepsis Qualifiers: Sepsis type: sepsis due to unspecified organism Qualified Code(s): A41.9 - Sepsis, unspecified organism Is this a current diagnosis for this admission?: Yes (9) Thrombocytopenia Is this a current diagnosis for this admission?: Yes (10) Postobstructive pneumonia Is this a current diagnosis for this admission?: YesPlan: Continue antibiotic coverage. - Time Time Spent with patient: Had a long discussion with the family overall prognosis does seem grave. Currently awaiting palliative care input. Time Spent with patient: 35 or more minutes Medications reviewed and adjusted accordingly: Yes Disposition: The patient is a DO NOT RESUSCITATE DO NOT INTUBATE. Pending patient's symptomatology and diagnostic findings will reevaluate as needed.
[2016-08-03] MEDS: IPRATROPIUM/ALBUTEROL 0.5-2.5 MG/3 ML AMPUL NEB PRN (17:59)
[2016-08-03] MEDS: FAMOTIDINE 20 MG TABLET PO SCH (21:09)
--- NOTE | 2016-08-03 23:36 | Palliative Consultation Report ---
Consultation From:: KELLY BUTLER Consult Reason: Lung cancer history and possible recurrence - HPI Chief Complaint: weakness HPI: Palliative Care visit made at 1:45 pm 08/03/16 Appreciate consult request with this 75 year old gentleman who has been admitted with weakness after a fall at home. He has a history of lung cancer, diagnosed in 2010. He recently saw his oncologist and reports he was told he was cancer free. However, she states he has had weight loss (30# in a few months) and weakness. He fell at home in the yard and had pain in his right side after the fall. Since admission, he has been found to have pleural effusions and lesions noted on his liver. Today he has just returned from having biopsy done. Patient still sleeping in his bed, having just returned. No noted sign of pain or respiratory distress at present. states that after the biopsy is read, they will determine if he needs to have radiation therapy or chemotherapy. I told her I was there to help with any symptoms and also to help her establish care for her as needed after discharge. I discussed home health, palliaitve care follow up or hospice at home. She immediately said they did not need hospice because he was going to fight this again like he did before. Onset: Last week Onset/Duration: Gradual Quality of Pain: Achy Severity: Mild Exacerbated by: Movement Past Medical History(Consults) - General Information Source: Relative, [facility] Records Home Medications: Albuterol Sulfate [Proair HFA Inhalation Aerosol 8.5 gm MDI] 2 puff IH QID 07/29 Cetirizine HCl [Zyrtec 10 mg Tablet] 10 mg PO DAILY 07/29/16 Esomeprazole Magnesium [Nexium] 40 mg PO BID 07/29/16 Levothyroxine Sodium [Synthroid 0.075 mg Tablet] 0.075 mg PO DAILY 07/29/16 Lorazepam [Ativan 1 mg Tablet] 1 mg PO BIDP PRN 07/29/16 Pravastatin Sodium [Pravachol] 40 mg PO DAILY 07/29/16 Prochlorperazine Maleate [Compazine 5 mg Tablet] 5 mg PO TIDP PRN 07/29/16 Tiotropium [place] [Spiriva Handihaler 5 Cap/Kit (18 Mcg/Cap)] 1 puff IH DAILY 07/29/16 Allergies/Adverse Reactions: No Known Allergies Allergy (Unverified 09/03/10 10:25) - Social History Lives with: Family, Spouse/Significant other Family History: None, Reviewed & Not Pertinent Parental Family History Reviewed: No Children Family History Reviewed: No Sibling(s) Family History Reviewed.: No Smoking Status: Former Smoker Last Time Smoked: more than 10 years ago Frequency of Alcohol Use: None Hx Recreational Drug Use: No Drugs: None Hx Prescription Drug Abuse: No - Past Medical History Cardiac Medical History: Reports: Hx Hypercholesterolemia, Hx Hypertension Denies: Hx Heart Attack Pulmonary Medical History: Reports: Hx Bronchitis, Hx COPD Denies: Hx Asthma Neurological Medical History: Denies: Hx Cerebrovascular Accident, Hx Seizures Endocrine Medical History: Reports: Hx Hypothyroidism Malignancy Medical History: Reports Hx Lung Cancer - Stage IA status post upper lobectomy GI Medical History: Reports: Hx Gastroesophageal Reflux Disease. Denies: Hx Hepatitis, Hx Hiatal Hernia, Hx Ulcer Musculoskeltal Medical History: Reports Hx Arthritis Psychiatric Medical History: Reports: Hx Depression - anxiety Infectious Medical History: Denies: Hx Hepatitis Hematology: Denies: Anemia, Sickle Cell Disease - Surgical History Past Surgical History: Reports: Hx Herniorrhaphy, Other - Upper lobectomy right lung. Denies: Hx Open Heart Surgery, Hx Pacemaker Review of systems ROS unobtainable: due to mental statu - Patient asleep from sedation for biopsy Ojective:Exam Vital Signs: Temp Pulse Resp BP Pulse Ox 97.5 F 95 32 H 124/99 H 81 L 08/03/16 16:12 08/03/16 22:41 08/03/16 22:41 08/03/16 22:41 08/03/16 22:41 Intake & Output 08/02/16 08/03/16 08/04/16 06:59 06:59 06:59 Intake Total 1742 1478 1186 Output Total 622 2 Balance 1120 1478 1184 Weight 76.9 kg 79.1 kg - General General Appearance: Sedated In distress: None Note:: Asleep in bed with slight frown on brow. No respiratory distress, breathing easily at present. Color pale andashen but no cyanosis. Skin W/D. Pulse regular. Did not awaken patient. - Respiratory Respiratory Status: No respiratory distress - Cardiovascular Rhythm: Regular Objective-Diagnostic Laboratory: 08/03/16 04:18 08/02/16 04:11 08/03/16 04:18 WBC 16.8 H RBC 4.31 L Hgb 13.0 L Hct 38.0 MCV 88 MCH 30.1 MCHC 34.2 RDW 14.5 H Plt Count 62 L Seg Neutrophils % Not Reportable Lymphocytes % Not Reportable Monocytes % Not Reportable Eosinophils % Not Reportable Basophils % Not Reportable Absolute Neutrophils Not Reportable Absolute Lymphocytes Not Reportable Absolute Monocytes Not Reportable Absolute Eosinophils Not Reportable Absolute Basophils Not Reportable Plan and Recommendation Plan and Recommendation: Will follow with patient to support and to help her accept care as needed according to treatment needed. I suspect patient will need hospice either now or soon and will try to help her with the diagnosis and symptom management for patietn as well as emotional support for both patietn and family. - Time Spent with Patient Time spent with patient: 15 to 30 Minutes - 15 minutes spent with patient and his , 40 min total with chart review and documentation.
[2016-08-04] MEDS: HALOPERIDOL LACTATE INJ 5 MG/1 ML VIAL IV PRN ×2 (00:49→07:35)
[2016-08-04] MEDS: LACTULOSE SYRUP 20 GM/30 ML UDCUP PO SCH (05:02)
[2016-08-04] MEDS: METHYLPREDNISOLONE INJ 125 MG/2 ML SDV IV SCH (05:40)
[2016-08-04 07:55] VITALS: BP 141/113
[2016-08-04] MEDS: CEFEPIME HCL 2 GM in DEXTROSE 5%-WATER 50 ML IV SCH (09:58)
[2016-08-04] MEDS ORDERED: FUROSEMIDE INJ/PF 40 MG/4 ML SDV ONE (10:00)
[2016-08-04 10:36] LABS: VENOUS BLOOD BASE EXCESS -20.6 mmol/L; VENOUS BLOOD HCO3 8.4 mmol/L (20-32); VENOUS BLOOD PCO2 30.3 mmHg (35-63)
[2016-08-04 10:38] LABS: VENOUS BLOOD PH 7.06 (7.30-7.42)
[2016-08-04 11:05] LABS: ALANINE AMINOTRANSFERASE 644 U/L (21-72); ALBUMIN 3.2 g/dL (3.5-5.0); ALKALINE PHOSPHATASE 275 U/L (38-126); BILIRUBIN,TOTAL 1.4 mg/dL (0.2-1.3); BLOOD UREA NITROGEN 55 mg/dL (7-20); CALCIUM 9.9 mg/dL (8.4-10.2); CHLORIDE 109 mmol/L (98-107); GLUCOSE 93 mg/dL (75-110); TOTAL PROTEIN 6.3 g/dL (6.3-8.2)
[2016-08-04 11:11] LABS: CREATININE RESULT 2.85 mg/dL (0.52-1.25)
[2016-08-04 11:25] LABS: ASPARTATE AMINO TRANSFERASE 2624 U/L (17-59)
[2016-08-04 11:32] LABS: CARBON DIOXIDE 8 mmol/L (22-30); POTASSIUM 7.2 mmol/L (3.6-5.0)
[2016-08-04 11:33] LABS: ANION GAP 25 (5-19)
[2016-08-04] MEDS: TIOTROPIUM BROMIDE DPI 5 CAP/KIT (18 MCG/CAP) IH SCH (13:54)
[2016-08-04] MEDS: LEVOTHYROXINE SODIUM 0.075 MG TABLET PO SCH (13:54)
[2016-08-04] MEDS: ALBUTEROL SULFATE HFA (90 MCG/PUFF) 200 PUFF/8.5 GM MDI IH SCH (13:54)
[2016-08-04] MEDS: FAMOTIDINE 20 MG TABLET PO SCH (13:54)
[2016-08-04] MEDS: LEVOFLOXACIN 500 MG TABLET PO SCH (13:54)
[2016-08-04] MEDS: MEGESTROL ACETATE SUSP 400 MG/10 ML UDCUP PO SCH (13:54)
[2016-08-04] MEDS: GUAIFENESIN 600 MG TABLET.SA PO SCH (13:54)
--- NOTE | 2016-08-04 15:05 | Death Summary ---
Summary Date : 08/04/16 Time of :: 12:25 Autopsy: No Resuscitation Status: Do Not Resuscitate Primary Care Provider: Dr. Sandoval Consulting Provider: Oncologist: Dr. Han - Final Diagnosis (1) Metastatic malignant neoplasm to lung Is this a current diagnosis for this admission?: Yes (2) Postobstructive pneumonia Is this a current diagnosis for this admission?: Yes (3) Sepsis Is this a current diagnosis for this admission?: Yes (4) COPD (chronic obstructive pulmonary disease) Is this a current diagnosis for this admission?: Yes (5) GERD (gastroesophageal reflux disease) Is this a current diagnosis for this admission?: Yes (6) History of lung cancer Is this a current diagnosis for this admission?: Yes (7) Hypothyroidism Is this a current diagnosis for this admission?: Yes (8) Liver lesion Is this a current diagnosis for this admission?: Yes (9) Lower back pain Is this a current diagnosis for this admission?: Yes (10) Thrombocytopenia Is this a current diagnosis for this admission?: Yes Hospital Course:: The patient was admitted to continuous telemetry unit. The patient was treated with broad-spectrum antibiotic coverage given his pneumonia. The patient's condition did have a steady state of decline including mentation. The patient was seen and evaluated by oncology. The patient underwent a CT-guided liver biopsy on 08/03/2016 for further diagnostic evaluation of presumed metastatic lung cancer. The patient continued to have progressive agitation. Family elected to proceed with DO NOT RESUSCITATE status on 08/03/2016 given the patient's previously expressed wishes. The patient was seen and evaluated by Pearl Randhawa of palliative care. Overnight on 08/03/2016 into 08/04/2016 the patient's condition continued to decline but more rapidly. The patient became tachypnea acidotic with multisystem organ failure. The patient was unresponsive. Family was made aware the patient's prognosis was quite poor. And the patient with family and myself present at bedside.
== END 2016-08-04 14:46 | DRG 871 ==
LOC: ER 09:46 → UNDOADMIN 16:09 → EH 16:09 → 3N 18:00
PROVIDERS: ADMIT Internal Medicine; ATTEND Internal Medicine
PROC: 3E0F73Z Introduction of Anti-inflammatory into Respiratory Tract, Via Natural or Artificial Opening (ICD-10-PCS; 2016-07-29)
PROC: 30233R1 Transfusion of Nonautologous Platelets into Peripheral Vein, Percutaneous Approach (ICD-10-PCS; 2016-08-02)
PROC: 0FB23ZX Excision of Left Lobe Liver, Percutaneous Approach, Diagnostic (ICD-10-PCS; principal; 2016-08-03)
DX: A41.9 Sepsis, unspecified organism (principal); J18.9 Pneumonia, unspecified organism; C78.7 Secondary malignant neoplasm of liver and intrahepatic bile duct; J90 Pleural effusion, not elsewhere classified; C34.90 Malignant neoplasm of unspecified part of unspecified bronchus or lung; R65.20 Severe sepsis without septic shock; E78.5 Hyperlipidemia, unspecified; I10 Essential (primary) hypertension; J44.9 Chronic obstructive pulmonary disease, unspecified; K21.9 Gastro-esophageal reflux disease without esophagitis; M19.90 Unspecified osteoarthritis, unspecified site; F32.9 Major depressive disorder, single episode, unspecified; F41.9 Anxiety disorder, unspecified; E03.9 Hypothyroidism, unspecified; M54.5 Low back pain; D69.59 Other secondary thrombocytopenia; R63.4 Abnormal weight loss; R45.1 Restlessness and agitation; Z66 Do not resuscitate; Z87.891 Personal history of nicotine dependence; Z85.118 Personal history of other malignant neoplasm of bronchus and lung; Z90.2 Acquired absence of lung [part of]; Z91.81 History of falling
CPT/HCPCS: 36415; 36430; 47000; 70450; 70460; 71010; 71260; 74177; 80048; 80053; 81001; 82140; 82378; 82550; 82553; 82803; 82962; 83010; 83605; 83615; 83690; 83735; 83880; 84100; 84443; 84484; 85025; 85027; 85610; 85730; 86880; 86900; 86901; 87040; 88305; 88341; 88342; 93005; 93010; 94660; 96361; 96365; 99285; J0692; J1630; J1940; J1956; J2060; J2250; J2930; J3010; J3475; J3490; J7030; J7620; P9035; S0028